=== PATIENT | male | born 1995 | race Caucasian/White ===

== ENCOUNTER → 2016-06-29 | Outpatient (CLI) | payer OTHER ==
--- NOTE | 2016-06-29 15:34 | MR ---
MRI of the Brain (Without Contrast) at 1041 hours Clinical Indications: R 55, syncope and collapse, R 41.0, disorientation Technique: T1-weighted images were acquired axially and sagittally from the foramen magnum to the ve rtex. Axial fast inversion recovery, fast T2-weighted, and diffusion-weighted axial images were obta ined without contrast. Findings: The ventricles, cisterns, and sulci are normal without atrophy, hydrocephalus, midline eloise ft, herniation, or epidural/subdural hematomas. No intracranial hemorrhage or masses. Diffusion-weigh gage sequence demonstrates no acute infarct. Cerebellar tonsils are in normal position. Pituitary glan d is normal in size. Normal signal flow-void in the superior sagittal sinus, basilar artery, and bila teral internal carotid arteries indicating patency. Paranasal sinuses and mastoid air cells are clear . Brainstem and cerebellar hemispheres demonstrate no infarcts or signal abnormalities. Impression: Normal MRI of the brain without contrast.
== END ==
LOC: FIMAGING 10:13
PROVIDERS: ATTEND Psychiatry & Neurology Neurology
DX: R55 Syncope and collapse (principal); R41.0 Disorientation, unspecified

== ENCOUNTER → 2016-07-15 | Outpatient (CLI) | payer OTHER ==
--- NOTE | 2016-07-19 15:07 | CPEEG ---
[f rep st] ELECTROENCEPHALOGRAM DATE OF STUDY: 07/15/2016 DATE OF INTERPRETATION: 07/19/2016 INTERPRETATION: This 4-hour video EEG recording was normal. There were no potentially epileptogenic abnormalities present during the awake or sleep recordings. During the video EEG monitoring session , the patient did not have any clinical events. REPORT: This 4-hour video EEG contains sparse, low amplitude 10 Hz alpha activity to the posterior h ead regions. There was prominent beta frequency activity in the background. There was no abnormal a ctivation at rest, during photic stimulation, or hyperventilation. The patient became drowsy and fel l into sustained sleep during the study. There was no abnormal activation during drowsiness, sleep, or during times of arousal. During the video EEG monitoring session, the patient did not have any cl inical events. /[id number]/MODL
== END ==
LOC: FCPNEURO 09:03
PROVIDERS: ATTEND Psychiatry & Neurology Neurology
DX: R55 Syncope and collapse (principal); R41.0 Disorientation, unspecified

== ENCOUNTER 2017-02-09 13:32 | Inpatient (IN) | payer SELFPAY ==
[2017-02-09] MEDS ORDERED: NALOXONE HCL 0.4 MG/ML INJ ONE (13:44)
[2017-02-09] MEDS ORDERED: NALOXONE HCL 0.4 MG/ML INJ IVP ONE (13:44)
[2017-02-09 13:53] LABS: % IMMATURE GRANULYOCYTES 0.7 % (0.0-1.1); ABSOLUTE IMMATURE GRANULOCYTES 0.13 10^3/uL (0.00-0.10); ADD DIFF? NO; ADD MORPH? NO; ADD SCAN? NO; ATYPICAL LYMPHOCYTE FLAG 0 (0-99); FRAGMENT RBC FLAG 0 (0-99); HEMATOCRIT 43.5 % (40.0-51.0); HEMOGLOBIN 14.7 g/dL (13.7-17.5); LEFT SHIFT FLG 30 (0-99); LIPEMIA HEMOLYSIS FLAG 90 (0-99); MEAN CELL HEMOGLOBIN 30.8 pg (27.9-34.1); MEAN CELL HEMOGLOBIN CONCENTR. 33.8 g/dL (32.4-36.7); MEAN CELL VOLUME 91.2 fL (81.5-99.8); MEAN PLATELET VOLUME 8.9 fL (8.7-11.7); PLATELET CLUMPS FLAG 10 (0-99); PLATELET COUNT 301 10^3/uL (150-400); RED BLOOD CELL COUNT 4.77 10^6/uL (4.40-6.38); RED CELL DISTRIBUTION WIDTH 12.2 % (11.5-15.2)
--- NOTE | 2017-02-09 13:56 | EDPHY ---
H & P Time Seen by Provider: 02/09/17 13:40 HPI/ROS: CHIEF COMPLAINT: Altered mental status HISTORY OF PRESENT ILLNESS: 21-year-old male brought in by EMS after being found in his hotel room altered and unresponsive. There is limited history available. Patient evidently did not check out of the hotel as was scheduled today. The hospital staff went into the room and found him on the bed unresponsive. EMS was called. EMS found him with sonorous respirations, minimally responsible, and a bottle of Ativan, 15 tablets, in the room. Bottle is empty. It was prescribed on December 25. There is a small amount of liquid in the bottle . Patient himself gives no other history. They did find a vap pen. No other history is available. REVIEW OF SYSTEMS: Review of systems is unobtainable from this patient because of altered mentation. PAST MEDICAL HISTORY: Unknown. SOCIAL HISTORY: Unknown. VITAL SIGNS Reviewed by me. GENERAL: Mildly overweight, sonorous respirations, moving all extremities, opens eyes to painful stimuli and sternal rub. At 1 point asks for water. Nasal trumpet is place. HEENT: Atraumatic. Eyes: No icterus, no injection. Pupils are is 5 mm, reactive. Mouth: Slightly dry mucous membranes. No erythema or lesions. Gag reflex is present. Patient is actually biting on the tongue blade. Neck: supple, no signs of meningismus. LUNGS: Coarse breath sounds throughout. CARDIAC: Tachycardic. No rubs murmurs or gallops auscultated. ABDOMEN: Soft, no obvious tenderness. Nondistended. Normal bowel sounds. Excoriations on the lower abdominal wall. BACK: No trauma noted. EXTREMITIES: Erythematous blanching circular patch is present on the left knee and right ankle. No edema. Moving all extremities x4. No trauma. No edema. NEURO: Responsive to painful stimuli. Opens his eyes to voice. Does not follow commands. GCS: Eyes 3, verbal 2, motor 5, Total: 10 SKIN: Slightly diaphoretic. PSYCHIATRIC: Unable to assess. Seems somewhat agitated. - Personal History Tetanus Vaccine Date: 2013 - Medical/Surgical History Hx Asthma: No Hx Chronic Respiratory Disease: No Hx Diabetes: No Hx Cardiac Disease: No Hx Renal Disease: No Hx Cirrhosis: No Hx Alcoholism: No Hx HIV/AIDS: No Hx Splenectomy or Spleen Trauma: No Other PMH: Denies - Social History Smoking Status: Never smoked Constitutional: Initial Vital Signs Heart Rate 103 H 02/09/17 13:46 Respiratory Rate 22 H 02/09/17 13:46 Blood Pressure 174/147 H 02/09/17 13:46 O2 Sat (%) 91 L 02/09/17 13:46 O2 Delivery Mode Nasal Cannula O2 (L/minute) 4 Allergies/Adverse Reactions: No Known Allergies Allergy (Verified 05/10/16 15:40) Home Medications: Medication Instructions Recorded Bupropion HCl [Wellbutrin XL 300mg] 07/24/12 PARoxetine HCL [Paxil 20mg (RX)] 07/24/12 Abilify 12/27/15 LORAZEPAM 12/27/15 Medical Decision Making - Diagnostics EKG Interpretation: 12-LEAD EKG: Please see the full report in [facility]. My interpretation: Tachycardia, borderline prolonged QT. Imaging Results: Imaging Impressions Chest X-Ray 02/09/17 13:49 Impression: 1. Poor inspiration with mild compressive changes. Head CT 02/09/17 13:49 Impression: 1. Limited study with extensive motion artifact. 2. Artifact versus ischemia or edema in the right basal ganglia. 3. No enlarged intracranial hemorrhage or shift. Recommend repeat heating noncontrast CT or acquiring noncontrast MRI. Findings discussed with Emergency Department physician, Morena Arambula MD on , [address]: Impression: 1. Query ischemia involving the internal capsule on the right. 2. No acute intracranial hemorrhage or swelling. Findings discussed with Emergency Department physician, Morena Arambula MD on , 1623 hours. Dictated By: Jose Pang MD ED Course/Re-evaluation: Patient received 0.4 mg of Narcan. He became more agitated following this. Moaning. Not appropriate. I-STAT demonstrates a creatinine of 2.5. Potassium 5.8. Lab potassium [place] 6[place] [address] is negative for any acute bleed. There is an area potential decreased attenuation in the right basal ganglia that may represent hypoxemia. However there is a significant amount of motion artifact. Patient's labs are remarkable for a troponin of 2.6. Rectal aspirin was ordered. When placing the rectal aspirin ,the nursing staff pulled to syringe from his rectum. Urine tox is negative for drugs of abuse. Echocardiogram was ordered. Echocardiogram demonstrates some hypokinesis generally of the right ventricle. No tricuspid regurgitation. Patient's D-dimer was elevated, however, had elevated creatinine precludes obtaining a CT scan with contrast. Repeat CT scan of the head was ordered. Patient's BNP is elevated at 4120. Patient's course was discussed on 2 occasions with the hospitalist service, Dr. Vinny Moran. Patient will be admitted to the ICU. Patient will be followed by Cardiology, Dr. Stephens. Results: Repeat CT scan of the head was obtained prior to admission to the ICU. At this point the patient is not as agitated. I discussed the results of the study with the radiologist. Impression: Area of hypoperfusion the right internal capsule may represent acute ischemia Please see the full radiology report. Updated information was provided to Dr. Nam Torrez. Patient was admitted to the intensive care unit in serious condition. Differential Diagnosis: After the history was obtained and physical exam performed, the following differential for the patient's altered mental status and electrolyte abnormalities was considered included but was not limited to hypoglycemia, rhabdomyolysis, myocardial infarction, arrhythmias, electrolyte disturbances, intracranial hemorrhage, tumor, drug or alcohol intoxication, stroke, cardiac causes, seizure. Critical care time spent by me, Dr. Arambula exclusively with this patient was 50 minutes minutes, exclusive of PA time and exclusive of procedures. The organ system at risk was neurologic and cardiac and I gave IVF, calcium gluconate, dextrose, insulin, Narcan, performed multiple re-evaluations, consulted with cardiology and hospital medicine to prevent worsening of the patients condition. Critical care time included obtaining history, performing a physical exam, bedside monitoring of interventions, collecting and interpreting tests and discussion with consultants but not including time spent performing procedures. Consult/Admit Bed Type: Dr. Vinny Moran, ICU - Data Points Laboratory Results: Laboratory Results 02/09/17 13:06 02/09/17 13:06 02/09/17 02/09/17 02/09/17 14:38 14:38 13:47 WBC RBC Hgb POC Hgb 15.0 gm/dL gm/dL (13.7-17.5) Hct POC Hct 44 % % (40-51) MCV MCH MCHC RDW Plt Count MPV Neut % (Auto) Lymph % (Auto) Simpson % (Auto) Eos % (Auto) Baso % (Auto) Nucleat RBC Rel Count Absolute Neuts (auto) Absolute Lymphs (auto) Absolute Monos (auto) Absolute Eos (auto) Absolute Basos (auto) Absolute Nucleated RBC Immature Gran % Immature Gran # PT INR POC Sodium 141 mEq/L mEq/L (134-144) Sodium POC Potassium 5.9 mEq/L H mEq/L (3.3-5.0) Potassium POC Chloride 105 mEq/L mEq/L (97-110) Chloride Carbon Dioxide Anion Gap POC BUN 39 mg/dL H mg/dL (7-23) BUN Creatinine POC Creatinine 2.5 mg/dL H mg/dL (0.7-1.3) Estimated GFR Glucose POC Glucose 158 mg/dL H mg/dL (70-100) Calcium Creatine Kinase CK-MB (CK-2) Fraction CK-MB (CK-2) % Creatine Kinase Interp Troponin I Urine Opiates Screen Pending NEGATIVE (NEGATIVE) Ur Oxycodone Screen Pending Ur Methadone Pending Urine Barbiturates NEGATIVE (NEGATIVE) Ur Barbituates Screen Pending Ur Phencyclidine Scrn Pending NEGATIVE (NEGATIVE) Ur Amphetamine Screen NEGATIVE (NEGATIVE) Ur Amphetamines Screen Pending U Benzodiazepines Scrn Pending NEGATIVE (NEGATIVE) Urine Cocaine Screen Pending NEGATIVE (NEGATIVE) U Marijuana (THC) Screen NON-NEGATIVE H (NEGATIVE) Ur THC Screen Pending U Rx/OTC Drugs Detect Pending Ur Rx/OTC Suspect Drug Pending Urine Alcohol Pending 02/09/17 02/09/17 02/09/17 13:30 13:06 13:06 WBC RBC Hgb POC Hgb Hct POC Hct MCV MCH MCHC RDW Plt Count MPV Neut % (Auto) Lymph % (Auto) Simpson % (Auto) Eos % (Auto) Baso % (Auto) Nucleat RBC Rel Count Absolute Neuts (auto) Absolute Lymphs (auto) Absolute Monos (auto) Absolute Eos (auto) Absolute Basos (auto) Absolute Nucleated RBC Immature Gran % Immature Gran # PT 15.4 SEC H SEC (12.0-15.0) INR 1.22 H (0.83-1.16) POC Sodium Sodium 139 mEq/L mEq/L (134-144) POC Potassium Potassium 6.4 mEq/L H* mEq/L (3.5-5.2) POC Chloride Chloride 106 mEq/L mEq/L (97-110) Carbon Dioxide 14 mEq/l L mEq/l (22-31) Anion Gap 19 mEq/L H mEq/L (8-16) POC BUN BUN 34 mg/dL H mg/dL (7-23) Creatinine 2.6 mg/dL H mg/dL (0.7-1.3) POC Creatinine Estimated GFR 31 Glucose 159 mg/dL H mg/dL (70-100) POC Glucose Calcium 8.5 mg/dL mg/dL (8.5-10.4) Creatine Kinase 91632 IU/L H IU/L (0-224) CK-MB (CK-2) Fraction 62.70 ng/mL H ng/mL (0.00-3.19) CK-MB (CK-2) % 0.4 % % (0.0-4.0) Creatine Kinase Interp NEGATIVE (NEGATIVE) Troponin I 2.360 ng/mL H ng/mL (0.000-0.034) Urine Opiates Screen Ur Oxycodone Screen Ur Methadone Urine Barbiturates Ur Barbituates Screen Ur Phencyclidine Scrn Ur Amphetamine Screen Ur Amphetamines Screen U Benzodiazepines Scrn Urine Cocaine Screen U Marijuana (THC) Screen Ur THC Screen U Rx/OTC Drugs Detect Ur Rx/OTC Suspect Drug Urine Alcohol 02/09/17 13:06 WBC 18.63 10^3/uL H 10^3/uL (3.80-9.50) RBC 4.77 10^6/uL 10^6/uL (4.40-6.38) Hgb 14.7 g/dL g/dL (13.7-17.5) POC Hgb Hct 43.5 % % (40.0-51.0) POC Hct MCV 91.2 fL fL (81.5-99.8) MCH 30.8 pg pg (27.9-34.1) MCHC 33.8 g/dL g/dL (32.4-36.7) RDW 12.2 % % (11.5-15.2) Plt Count 301 10^3/uL 10^3/uL (150-400) MPV 8.9 fL fL (8.7-11.7) Neut % (Auto) 83.5 % H % (39.3-74.2) Lymph % (Auto) 10.8 % L % (15.0-45.0) Simpson % (Auto) 4.8 % % (4.5-13.0) Eos % (Auto) 0.0 % L % (0.6-7.6) Baso % (Auto) 0.2 % L % (0.3-1.7) Nucleat RBC Rel Count 0.0 % % (0.0-0.2) Absolute Neuts (auto) 15.56 10^3/uL H 10^3/uL (1.70-6.50) Absolute Lymphs (auto) 2.02 10^3/uL 10^3/uL (1.00-3.00) Absolute Monos (auto) 0.89 10^3/uL H 10^3/uL (0.30-0.80) Absolute Eos (auto) 0.00 10^3/uL L 10^3/uL (0.03-0.40) Absolute Basos (auto) 0.03 10^3/uL 10^3/uL (0.02-0.10) Absolute Nucleated RBC 0.00 10^3/uL 10^3/uL (0-0.01) Immature Gran % 0.7 % % (0.0-1.1) Immature Gran # 0.13 10^3/uL H 10^3/uL (0.00-0.10) PT INR POC Sodium Sodium POC Potassium Potassium POC Chloride Chloride Carbon Dioxide Anion Gap POC BUN BUN Creatinine POC Creatinine Estimated GFR Glucose POC Glucose Calcium Creatine Kinase CK-MB (CK-2) Fraction CK-MB (CK-2) % Creatine Kinase Interp Troponin I Urine Opiates Screen Ur Oxycodone Screen Ur Methadone Urine Barbiturates Ur Barbituates Screen Ur Phencyclidine Scrn Ur Amphetamine Screen Ur Amphetamines Screen U Benzodiazepines Scrn Urine Cocaine Screen U Marijuana (THC) Screen Ur THC Screen U Rx/OTC Drugs Detect Ur Rx/OTC Suspect Drug Urine Alcohol Medications Given: Sodium Chloride (Ns) 1,000 mls @ 100 mls/hr IV CONT YVETTE Stop: 08/08/17 16:14 Last Admin: 02/09/17 18:37 Dose: 1,000 mls Ertapenem 0.5 gm/ Sodium (Chloride) 50 mls @ 100 mls/hr IV DAILY YVETTE PRN Reason: Protocol Stop: 03/11/17 17:29 Last Admin: 02/09/17 18:37 Dose: 50 mls Discontinued Medications Aspirin (Aspirin Rectal) 300 mg TN EDNOW ONE Stop: 02/09/17 15:09 Last Admin: 02/09/17 15:11 Dose: 300 mg Calcium Gluconate (Calcium Gluconate) 1 gm IVP EDNOW ONE Stop: 02/09/17 14:15 Last Admin: 02/09/17 14:39 Dose: 1 gm Dextrose (Dextrose 50% Syringe) 25 gm IVP EDNOW ONE Stop: 02/09/17 14:15 Last Admin: 02/09/17 14:40 Dose: 25 gm Sodium Chloride (Ns) 2,000 mls @ 0 mls/hr IV EDNOW ONE; Wide Open PRN Reason: Protocol Stop: 02/09/17 14:01 Last Admin: 02/09/17 14:53 Dose: 2,000 mls Insulin Human Regular (Humulin R) 10 unit IVP EDNOW ONE Stop: 02/09/17 14:15 Last Admin: 02/09/17 14:41 Dose: 10 units Lorazepam (Ativan Injection) 2 mg IVP EDNOW ONE Stop: 02/09/17 14:31 Last Admin: 02/09/17 14:50 Dose: 2 mg Naloxone HCl (Narcan) 0.4 mg IVP EDNOW ONE Stop: 02/09/17 13:45 Last Admin: 02/09/17 13:46 Dose: 0.4 mg Sodium Bicarbonate (Sodium Bicarbonate) 50 meq IVP EDNOW ONE Stop: 02/09/17 14:37 Last Admin: 02/09/17 14:41 Dose: 50 meq Point of Care Test Results: 02/09/17 13:47 POC Sodium 141 POC Potassium 5.9 H POC Chloride 105 POC BUN 39 H POC Creatinine 2.5 H POC Glucose 158 H Departure - Departure Disposition: [facility] Acute Clinical Impression: Hyperkalemia, Elevated troponin Altered mental status Qualifiers: Altered mental status type: somnolence Qualified Code(s): R40.0 - Somnolence Acute renal failure Qualifiers: Acute renal failure type: unspecified Qualified Code(s): N17.9 - Acute kidney failure, unspecified Congestive heart failure Qualifiers: Congestive heart failure type: unspecified congestive heart failure type Congestive heart failure chronicity: acute Qualified Code(s): I50.9 - Heart failure, unspecified Rhabdomyolysis Qualifiers: Rhabdomyolysis type: traumatic Encounter type: initial encounter Qualified Code (s): T79.6XXA - Traumatic ischemia of muscle, initial encounter Condition: Serious
[2017-02-09] MEDS ORDERED: NS 2,000 ML IV ONE (14:00)
[2017-02-09 14:05] LABS: ANION GAP 19 mEq/L (8-16); CALCIUM 8.5 mg/dL (8.5-10.4); CARBON DIOXIDE 14 mEq/l (22-31); CHLORIDE 106 mEq/L (97-110); CREATININE 2.6 mg/dL (0.7-1.3); GLOMERULAR FILTRATION RATE 31; GLUCOSE 159 mg/dL (70-100); SODIUM 139 mEq/L (134-144)
[2017-02-09 14:06] LABS: INR 1.22 (0.83-1.16); PROTIME(PATIENT) 15.4 SEC (12.0-15.0)
[2017-02-09 14:08] LABS: POTASSIUM 6.4 mEq/L (3.5-5.2)
[2017-02-09] MEDS ORDERED: SODIUM BICARBONATE 150 MEQ in D5W 1,000 ML IV ONE (14:14)
[2017-02-09] MEDS ORDERED: CALCIUM GLUC 10% 1 GM/10 ML VIAL IVP ONE (14:14)
[2017-02-09] MEDS ORDERED: D50W 25 GM/50 ML SYR IVP ONE ×2 (14:14→16:32)
[2017-02-09] MEDS ORDERED: INSULIN REGULAR HUMAN 100 UNIT/ML IVP ONE (14:14)
[2017-02-09] MEDS ORDERED: LORazepam 2 MG/ML INJ ONE (14:15)
[2017-02-09] MEDS ORDERED: LORazepam 2 MG/ML INJ IVP ONE (14:30)
--- NOTE | 2017-02-09 14:30 | CPEKG ---
Heart Rate: 104 RR Interval: 577 P-R Interval: 144 QRSD Interval: 88 QT Interval: 364 QTC Interval: 479 P [place]: 32 QRS [place]: 11 T Wave [place]: 18 EKG Severity - BORDERLINE ECG - EKG Impression: SINUS TACHYCARDIA EKG Impression: BORDERLINE PROLONGED QT INTERVAL Electronically Signed By: Morena Arambula 09-Feb-2017 21:28:17
[2017-02-09] MEDS ORDERED: SODIUM BICARBONATE 50 MEQ/50 ML SYR IVP ONE (14:36)
[2017-02-09] MEDS ORDERED: ASPIRIN RECTAL 300 MG SUPP PR ONE ×2 (14:59→15:08)
[2017-02-09 15:19] LABS: CK-MB INTERPRETATION NEGATIVE (NEGATIVE)
[2017-02-09] MEDS ORDERED: ONDANSETRON 4 MG/2 ML VIAL IVP PRN (16:05)
[2017-02-09] MEDS ORDERED: PROMETHAZINE HCL 25 MG/ML INJ IVP PRN (16:05)
[2017-02-09 16:11] LABS: ALANINE AMINOTRANSFERASE 802 IU/L (21-72); ALBUMIN 3.5 g/dL (3.5-5.0); ALKALINE PHOSPHATASE 47 IU/L (38-126); ANION GAP 12 mEq/L (8-16); BILIRUBIN,TOTAL 0.5 mg/dL (0.1-1.4); CALCIUM 8.4 mg/dL (8.5-10.4); CARBON DIOXIDE 22 mEq/l (22-31); CHLORIDE 105 mEq/L (97-110); CREATININE 2.2 mg/dL (0.7-1.3); ETHANOL SERUM < 10 mg/dL (0-10); GLOMERULAR FILTRATION RATE 38; GLUCOSE 115 mg/dL (70-100); POTASSIUM 5.3 mEq/L (3.5-5.2); SALICYLATE < 1.0 mg/dL (2.0-20.0); SODIUM 139 mEq/L (134-144); TOTAL PROTEIN 6.1 g/dL (6.3-8.2)
--- NOTE | 2017-02-09 16:16 | PDGENHP ---
History and Physical - Chief Complaint Acute encephalopathy - History of Present Illness primary care provider: Unknown History of present illness: 21-year-old male presents with acute encephalopathy characterized as unresponsiveness with sonorous respirations, onset of symptoms unclear. The patient was staying at the [facility] and hotel management came to discharge him from his room, finding him unarousable on the bed. EMS was contacted, and upon arrival to the scene, they found an empty prescription bottle for Ativan near the bed. The bottle contained on identifiable liquid. The patient was unable to be aroused, was placed on supplemental oxygen, was transported to [facility]. Upon arrival to [facility], the patient appeared tachypneic and was placed on face mask oxygen. Received Narcan and became somewhat agitated. He was given 1 dose of IV Ativan and remained calm, allowing head CT and further workup to commence. Other information about this patient is unknown. History Information - Allergies/Home Medication List Allergies/Adverse Reactions: No Known Allergies Allergy (Verified 05/10/16 15:40) Home Medications: Bupropion HCl [Wellbutrin XL 300mg] 07/24/12 [Last Taken 07/24/12 07:00] PARoxetine HCL [Paxil 20mg (RX)] 07/24/12 [Last Taken 07/24/12 07:00] Abilify 12/27/15 [Last Taken Unknown] LORAZEPAM 12/27/15 [Last Taken Unknown] I have personally reviewed and updated: family history, medical history, social history, surgical history - Past Medical History Additional medical history: Closed head injury April of 2016 - Surgical History Additional surgical history: unobtainable - Family History Additional family history: unobtainable - Social History Smoking Status: Never smoked Alcohol Use: Other (unobtainable) Drug Use: Other ( unobtainable) Additional social history: unobtainable Review of Systems ROS: 10pt was reviewed & negative except for what was stated in HPI & below ( and is otherwise unobtainable from the patient) Physical Exam Temp Pulse Resp BP Pulse Ox 37.9 C 99 20 165/115 H 98 02/09/17 16:04 02/09/17 16:04 02/09/17 16:04 02/09/17 16:04 02/09/17 16:04 O2 (L/minute) 12 Constitutional: no apparent distress, not in pain, obese, unkempt, No uncomfortable Eyes: other ( roving eye eyes, reactive pupils, conjugate gaze) Ears, Nose, Mouth, Throat: other ( patient's mouth is closed) Cardiovascular: tachycardia, No systolic murmur, No irregularly irregular, No edema Respiratory: reduced air movement ( right lateral anterior segment), other ( inspiratory wheezes centrally), No expiratory wheeze, No inspiratory crackles, No bronchial breath sounds Gastrointestinal: no palpable masses, No normoactive bowel sounds ( hypoactive bowel sounds), No tenderness, No guarding, No rebound Genitourinary: no bladder fullness, no bladder tenderness, other ( normal appearing penis, syringe placed in rectum) Skin: other ( blanchable patch very minimally raised approximately 15 cm in diameter along the central abdomen with some excoriation, bilateral excoriations on the thighs laterally, acne on the face, inguinal erythema left side, mildly raised, clearly demarcated patch, blanchable on the left knee and lateral leg approximately 15 cm in diameter, inverted nipples) Musculoskeletal: other ( no rigidity, normal bulk and tone) Neurologic: other ( alert awake oriented times 0, patient is noncooperative, does not follow commands, seems to have palmar squeezing reflex on right, unclear if he has on left, somewhat hyper reflexive a in the bilateral patellae with response to tactile stimuli) Psychiatric: other ( unable to perform this time) Lab Data & Imaging Review 02/09/17 13:06 02/09/17 15:27 WBC 18.63 10^3/uL (3.80-9.50) H 02/09/17 13:06 RBC 4.77 10^6/uL (4.40-6.38) 02/09/17 13:06 Hgb 14.7 g/dL (13.7-17.5) 02/09/17 13:06 POC Hgb 15.0 gm/dL (13.7-17.5) 02/09/17 13:47 Hct 43.5 % (40.0-51.0) 02/09/17 13:06 POC Hct 44 % (40-51) 02/09/17 13:47 MCV 91.2 fL (81.5-99.8) 02/09/17 13:06 MCH 30.8 pg (27.9-34.1) 02/09/17 13:06 MCHC 33.8 g/dL (32.4-36.7) 02/09/17 13:06 RDW 12.2 % (11.5-15.2) 02/09/17 13:06 Plt Count 301 10^3/uL (150-400) 02/09/17 13:06 MPV 8.9 fL (8.7-11.7) 02/09/17 13:06 Neut % (Auto) 83.5 % (39.3-74.2) H 02/09/17 13:06 Lymph % (Auto) 10.8 % (15.0-45.0) L 02/09/17 13:06 Evangeline % (Auto) 4.8 % (4.5-13.0) 02/09/17 13:06 Eos % (Auto) 0.0 % (0.6-7.6) L 02/09/17 13:06 Baso % (Auto) 0.2 % (0.3-1.7) L 02/09/17 13:06 Nucleat RBC Rel Count 0.0 % (0.0-0.2) 02/09/17 13:06 Absolute Neuts (auto) 15.56 10^3/uL (1.70-6.50) H 02/09/17 13:06 Absolute Lymphs (auto) 2.02 10^3/uL (1.00-3.00) 02/09/17 13:06 Absolute Monos (auto) 0.89 10^3/uL (0.30-0.80) H 02/09/17 13:06 Absolute Eos (auto) 0.00 10^3/uL (0.03-0.40) L 02/09/17 13:06 Absolute Basos (auto) 0.03 10^3/uL (0.02-0.10) 02/09/17 13:06 Absolute Nucleated RBC 0.00 10^3/uL (0-0.01) 02/09/17 13:06 Immature Gran % 0.7 % (0.0-1.1) 02/09/17 13:06 Immature Gran # 0.13 10^3/uL (0.00-0.10) H 02/09/17 13:06 PT 15.4 SEC (12.0-15.0) H 02/09/17 13:06 INR 1.22 (0.83-1.16) H 02/09/17 13:06 D-Dimer 1.10 ug/mLFEU (0.00-0.50) H 02/09/17 15:33 POC Sodium 141 mEq/L (134-144) 02/09/17 13:47 Sodium 139 mEq/L (134-144) 02/09/17 13:06 POC Potassium 5.9 mEq/L (3.3-5.0) H 02/09/17 13:47 Potassium 6.4 mEq/L (3.5-5.2) H* 02/09/17 13:06 POC Chloride 105 mEq/L (97-110) 02/09/17 13:47 Chloride 106 mEq/L (97-110) 02/09/17 13:06 Carbon Dioxide 14 mEq/l (22-31) L 02/09/17 13:06 Anion Gap 19 mEq/L (8-16) H 02/09/17 13:06 POC BUN 39 mg/dL (7-23) H 02/09/17 13:47 BUN 34 mg/dL (7-23) H 02/09/17 13:06 Creatinine 2.6 mg/dL (0.7-1.3) H 02/09/17 13:06 POC Creatinine 2.5 mg/dL (0.7-1.3) H 02/09/17 13:47 Estimated GFR 31 02/09/17 13:06 Glucose 159 mg/dL (70-100) H 02/09/17 13:06 POC Glucose 158 mg/dL (70-100) H 02/09/17 13:47 Calcium 8.5 mg/dL (8.5-10.4) 02/09/17 13:06 Creatine Kinase 10727 IU/L (0-224) H 02/09/17 13:30 CK-MB (CK-2) Fraction 62.70 ng/mL (0.00-3.19) H 02/09/17 13:30 CK-MB (CK-2) % 0.4 % (0.0-4.0) 02/09/17 13:30 Creatine Kinase Interp NEGATIVE (NEGATIVE) 02/09/17 13:30 Troponin I 2.360 ng/mL (0.000-0.034) H 02/09/17 13:06 NT-Pro-B Natriuret Pep 4120 pg/mL (0-125) H 02/09/17 Unknown Urine Opiates Screen NEGATIVE (NEGATIVE) 02/09/17 14:38 Urine Barbiturates NEGATIVE (NEGATIVE) 02/09/17 14:38 Ur Phencyclidine Scrn NEGATIVE (NEGATIVE) 02/09/17 14:38 Ur Amphetamine Screen NEGATIVE (NEGATIVE) 02/09/17 14:38 U Benzodiazepines Scrn NEGATIVE (NEGATIVE) 02/09/17 14:38 Urine Cocaine Screen NEGATIVE (NEGATIVE) 02/09/17 14:38 U Marijuana (THC) Screen NON-NEGATIVE (NEGATIVE) H 02/09/17 14:38 Visualized and Interpreted Chest x-ray results: Yes Chest X-Ray results: other ( faint patchy airspace disease without focal consolidation) Visualized and Interpreted EKG results: Yes EKG Interpretation: Positive for: other ( sinus tachycardia with T-wave inversion in lead 3) Assessment & Plan Assessment: 21-year-old male presents with acute encephalopathy in the setting of suspected toxin ingestion Plan: 1. Acute encephalopathy. New problem this provider, further workup indicated. Evidenced by global brain dysfunction characterized as unresponsiveness, somnolence, inability to follow commands, all of which is presumably acute change from his baseline, as the patient was able to function and check into the days in prior to this presentation. I suspect the cause is toxic ingestion of an unknown substance. His encephalopathy has most likely led to a prolonged down time, resulting in poor oral intake, acute kidney injury, rhabdomyolysis. The patient is at high risk for aspiration pneumonia and may have experienced anoxic injury to his brain. - reviewed outside records demonstrates previous closed head injury in April 2016, subsequent MRI in June 2016 demonstrating no abnormalities, subsequent EEG in July of 2016 demonstrating no abnormalities - head CT demonstrating possible right basal ischemia versus edema, now the patient is less physically active, get repeat head CT to further define, plan to perform MRI tomorrow if patient's mental status does not begin improving - discussed with lab, we will send the Ativan bottle containing the liquid which was presumably injected into the rectum to [facility] laboratories for complete ID of unknown substance - send complete tox panel - get ABG, lactic acid, procalcitonin, blood cultures, repeat chemistry, DIC panel - patient with minimal response to Narcan, hold on further doses at this time, patient currently stable from a respiratory standpoint, continue to monitor central oxygen with non-rebreather mask 2. Non ST-elevation myocardial infarction. Evidenced by troponin of 2.3, no active ischemic changes on EKG, repeat troponin at 10:00 p.m. and tomorrow a.m. - echocardiogram performed, we will review to rule out focal wall ischemia - if patient becomes hypotensive, repeat EKG and troponin immediately 3. Systemic inflammatory response syndrome. Evidenced by tachycardia, tachypnea , leukocytosis, unclear source of infection. Most likely secondary to the above processes, but he is at high risk for aspiration pneumonia - get noncontrast chest CT given his potentially patchy infiltrates on chest x- ray - send blood cultures - continue IV fluids - hold on IV antibiotics at this time - send procalcitonin level 4. Metabolic acidosis. Acute, most likely secondary to his toxic ingestion, has an anion gap of 19, send volatile alcohols - continue IV fluids 5. Acute kidney injury. Most likely secondary to prolonged down time, creatinine level improving with IV fluids - if serum creatinine level does not continue to improve, will send urinalysis and fractional excretion of sodium to consider acute tubular necrosis 6. Hyperkalemia. Secondary to acute kidney injury and reduced excretion, continue IV fluids, continue to monitor closely 7. Rhabdomyolysis. Acute, evidenced by CPK 14,000, will give IV fluids and monitor CPK level Diet. NPO Prophylaxis. High risk patient, has bleeding risk given possible brain ischemia , placed on SCDs Code. Full at present Disposition. Anticipated discharge uncertain this time, patient remains critically ill with high risk of worsening morbidity and/or mortality. 60 minutes of critical care time spent at bedside with patient, addressing the issues above, patient remains critically ill.
[2017-02-09 16:21] LABS: BASE EXCESS -4.9 mEq/L (-2.5-2.5); BICARBONATE 19 mEq/L (22-26); MEASURED OXYGEN SATURATION 92 % (92-95); PCO2 33 mmHg (34-38); PO2 69 mmHg (65-75); TCO2 20 mEq/L (23-27)
[2017-02-09 16:24] LABS: ASPARTATE AMINOTRANSFERASE 1479 IU/L (17-59)
[2017-02-09] MEDS ORDERED: CALCIUM CHLORIDE 1 GM/10 ML INJ ONE (16:32)
[2017-02-09] MEDS ORDERED: SODIUM BICARBONATE 50 MEQ/50 ML SYR ONE (16:32)
--- NOTE | 2017-02-09 16:32 | ASMTCMCOM ---
CM Note CM Note Notes: Patient does NOT given permission to contact his mother Evelyn Sexton (H: [phone]; Cell: ) at this time. Date Signed: 02/09/2017 04:31 PM Electronically Signed By:Chata Shipley
[2017-02-09 16:35] LABS: PLATELET COUNT 301 10^3/uL (150-400)
--- NOTE | 2017-02-09 16:40 | ECHO ---
[id number] + + [address] : : [place] [address] : : [phone] + Adult Echocardiographic Report + -----+ :Name: ISAAC MALIK LStudy Date: 02/09/2017 03:19 PM : : Hospital Admission Number: [id number] Nerissa n: ER: :: 1995 Gender: Male : :Age: 21 yrs Race: WH : :Reason For Study: elev troponin : :History: elev troponin : + -----+ MMode/2D Measurements \T\ Calculations IVSd: 0.80 cm RVDd: 4.0 cm FS: 15.2 % Ao root diam: LVPWd: 0.84 cm LVIDd: 4.5 cm EDV(Teich): 3.2 cm LVIDs: 3.8 cm 93.9 ml ESV(Teich): 63.5 ml EF(Teich): 32.4 % LVLd ap4: 9.5 cm SV(MOD-sp4): EDV(MOD-sp4): 56.0 ml 127.0 ml LVLs ap4: 8.8 cm ESV(MOD-sp4): 71.0 ml EF(MOD-sp4): 44.1 % Normal Measurement Values: + + :LVIDd (3.5-5.7cm) IVSd (0.6-1.1cm) LVPWd (0.6-1.1cm) Aortic Root (2.0-3.7cm)Left Atrium (1.5-4.0cm): :LV Vol(d) (76-115ml) LV Vol(s) (29-48ml) Ejec Fraction (50-65%)PV Cam (0.6- 1.2m/s) TV Cam (0.4-1.0m/s) : :MV E Cam (0.8-1.0m/s)MV A Cam (0.3-1.0m/s)LVOT Cam (0.7-1.2m/s) Asc Ao Cam ( 0.9-1.8m/s) : + + Doppler Measurements \T\ Calculations MV E max cam: Ao V2 max: LV V1 max: PA V2 max: 58.2 cm/sec 93.7 cm/sec 85.9 cm/sec 85.5 cm/sec MV A max cam: Ao max PG: LV V1 max PG: PA max P.1 cm/sec 3.5 mmHg 3.0 mmHg 2.9 mmHg MV E/A: 0.84 TR max cam: 212.0 cm/sec TR max P.0 mmHg RAP systole: 5.0 mmHg RVSP(TR): 23.0 mmHg Left Ventricle The left ventricle is normal in size. There is normal left ventricular wall thickness. Left ventricular systolic function is mildly reduced. Ejection Fraction = 40-45%. The left ventricular ejection fraction is calculated at 32.4 %. There is Doppler evidence for diastolic dysfunction. There is apical hypokinesis. Right Ventricle The right ventricle is mildly dilated. The right ventricular systolic function is mildly reduced. Atria The left atrial size is normal. Right atrial size is normal. Mitral Valve The mitral valve is normal in structure and function. There is trace to mild mitral regurgitation. Tricuspid Valve The tricuspid valve is normal in structure and function. There is trace to mild tricuspid regurgitation. Right ventricular systolic pressure is 23mmHg. Aortic Valve The aortic valve is trileaflet. There is no aortic stenosis. There is no aortic insufficiency. Pulmonic Valve The pulmonic valve is not well visualized. Great Vessels The aortic root is normal size. Pericardium/Pleural There is no pericardial effusion. Conclusion A two-dimensional transthoracic echocardiogram with M-mode and Doppler was performed. (1) Left ventricular systolic ejection fraction was mild to moderately reduced (35-45%) - mild to moderate global hypokinesis with more prounounced hypokinesis to the apex (2) No left ventricular hypertrophy (3) Diastolic dysfunction was present (4) Mild dilation of the right ventricular chamber with mild reduction in RV function (5) Normal atrial dimensions (6) Trace/mild mitral regurgitation (7) Trileaflet aortic valve without appreciable insufficiency noted (8) Trace/mild tricuspid regurgitation - RVSP was normal (9) Poor visualization of the pulmonic valve (10) No comparison echocardiograms Final Reading Physician: Iva Cuevas signed on 02/09/2017 04:39 PM Ordering Physician: Morena Arambula Performed By: Lexy Burgos
[2017-02-09 16:46] LABS: INR 1.29 (0.83-1.16); PROTIME(PATIENT) 16.1 SEC (12.0-15.0)
[2017-02-09 16:47] LABS: APTT 34.1 SEC (23.0-38.0)
[2017-02-09] MEDS ORDERED: HALOPERIDOL LACT 5 MG/ML INJ IVP PRN (17:12)
[2017-02-09 17:26] LABS: FIBRINOGEN 335 mg/dL (214-456)
[2017-02-09 18:14] LABS: COLOR YELLOW; LEUKOCYTE ESTERASE,URINE NEGATIVE (NEGATIVE); NITRITE,URINE NEGATIVE (NEGATIVE)
[2017-02-09 18:19] LABS: MUCUS TRACE /lpf (NONE-1+)
[2017-02-09] MEDS: NS 1,000 ML IV SCH (18:37)
[2017-02-09] MEDS: ERTAPENEM 0.5 GM in NS 50 ML IV SCH (18:37)
--- NOTE | 2017-02-09 18:50 | WOCRNPDOC ---
WOCRN Advanced Assessment Note - Skin Integrity Problem, Advanced Assess Right Posterior Ankle Dressing Type: Open to Air Radha Wound Tissue: Blanching, Erythema Site Measurement - Head-to-Toe Length X Width X Depth (cm): 6.5x4x0 Skin Integrity Problem Comment: Clearly demarkated area of blanching erythema that is slightly raised. Unknown etiology. Ok to gently apply skin repair cream and watch/wait to see if area resolves or if it evolves and blisters/opens. Wound care will check in again tomorrow. Left Lateral Knee Dressing Type: Open to Air Radha Wound Tissue: Blanching, Erythema Site Measurement - Head-to-Toe Length X Width X Depth (cm): 7.5x7.5x0 Skin Integrity Problem Comment: Clearly demarkated area of blanching erythema that is slightly raised. Unknown etiology but appears to have same etiology of wound on right posterior ankle. Ok to gently apply skin repair cream and watch/ wait to see if area resolves or if it evolves and blisters/opens. Wound care will check in again tomorrow. Right Lateral Thigh Dressing Type: Open to Air Radha Wound Tissue: Blanching, Erythema Wound Bed Constitution: Scab (approx x25 small scabs) Site Measurement - Head-to-Toe Length X Width X Depth (cm): all scabs are small ranging from approx 0.1x0.1x0 to 0.2x0.2x0 Skin Integrity Problem Comment: Likely from scratching/picking area. This area mimicks abdominal area of denudement. Lower Medial Abdomen Dressing Type: Open to Air Radha Wound Tissue: Blanching, Erythema Wound Bed Constitution: Scab (approx x 30) Site Measurement - Head-to-Toe Length X Width X Depth (cm): 0.1x0.1xscab to 0.2x0.2xscab Skin Integrity Problem Comment: Mostly scattered scabs from picking/scratching. One larger area of dendement in the center is partial thickness and dried measuring approx 1x1.5x0.1. No sign of infection. May benefit from being covered by allevyn life dressing. Sofia GERBER in room for all care and assessment. Unable to discuss plan nor glean any information regarding wounds from patient at this time. He is minimally rousable and cannot answer questions.
--- NOTE | 2017-02-09 21:03 | GCON ---
[f rep st] CONSULTATION CARDIOLOGY CONSULTATION DATE OF CONSULTATION: 02/09/2017 CHIEF COMPLAINT: Found unresponsive. HISTORY OF PRESENT ILLNESS: The patient is a 21-year-old male, who [facility], it i s not known on what day, and was scheduled to check out of the hotel today. Had a do not disturb si gn on the outer portion of the [facility] room where he was staying. Management went to check on him and found him unresponsive. EMS was called, and the patient was taken to the hospital emergently fo r further evaluation. The patient was noted to have a bottle of Ativan near his bedside within an u nknown fluid in it, presumably to dilute that and has ultimately been found to have a syringe appare ntly in his rectum for injecting some substance there. The patient was unresponsive, given Narcan w ithout affect, other than becoming somewhat agitated. He was given Ativan in the emergency departme nt. Subsequently had been evaluated with a chest x-ray, chest CT, head CT, echocardiogram, which wa s also repeated and compared to an old MRI, abdominal x-ray, echocardiogram and laboratory studies. I was asked to see the patient because of abnormalities identified on the echocardiogram as well as an elevated troponin level which was measured at 2.2, elevated creatine kinase of 14,000 with a neg ative MB interpretation. His N-terminal proBNP level was also 4120, and we were asked to see the nilda conteh in consultation. At the time of my evaluation, the patient is unable to participate in his hi story and physical. I asked him if it would be okay if I called his mother. He was unable to respo nd to that question, either in the affirmative or the negative. Because the patient is gravely ill and his mother was a proxy, I did attempt to contact his mother because he was unable to specificall y tell me that he did not want me to call his mother and her being the proxy, I felt it was importan t that she be aware of where the patient is located but also and more importantly, for us to be of o btain more of his medical history than we are currently able at the present time. ALLERGIES: The patient is not known to be allergic to medications from prior admission to the [facility]. CURRENT MEDICATIONS: Include bupropion XL 300 mg, Paxil 20 mg, Abilify date of last being taken is unknown and lorazepam 12/2015 was the last date that was known to be taken. PAST MEDICAL HISTORY: Significant for a closed head injury in April of 2016. We are unable to o btain additional surgical history. FAMILY HISTORY: Unobtainable at present. SOCIAL HISTORY: Pertinent for never having smoked. We are unable to obtain his current alcohol or drug use history. His current social situation is also unknown. REVIEW OF SYSTEMS: The review of systems is unobtainable from the patient given his poorly responsi ve state. PHYSICAL EXAMINATION: GENERAL: He is poorly responsive. He is not currently oriented to person, p lace, or time. VITAL SIGNS: His blood pressure is elevated at 165/115, heart rate 99, his respirat ory rate is 20 with shallow respirations. He does seem to be able to currently protect his airway. His saturation is 92% and he is in a normal sinus rhythm with near tachycardia. His temperature is 37.9, via a urinary catheter. NECK: Reveals no JVD or carotid bruit. I do not appreciate a supra clavicular or posterior chain lymph node enlargement. HEART: Reveals a normal S1 and S2 without S3 , S4. He does not have a rub on exam. His heart sounds are somewhat distant, presumably secondary to his body habitus. LUNGS: Clear to auscultation anteriorly with decreased breath sounds posterio rly as he is breathing with shallow respirations. I do not appreciate a wheeze, rale or rhonchi. A BDOMEN: Obese with positive bowel sounds. It is nondistended and nontender. There is no rebound o r guarding. EXTREMITIES: Cool but dry. He has intact radial dorsalis pedis, and posterior tibial pulses. He does not have peripheral edema. NEUROLOGIC: He is able to withdraw to painful stimuli. His right pupil is approximately 4 mm in size and responsive, and the left pupil is 3 and responsi ve. He is uncooperative and does not follow commands. Seems to have Gupta squeezing reflex on the right, unclear on the left. PSYCHIATRIC: Is unable to be performed at this time. LABORATORY STUDIES: Reveal a white count of 18.63, potassium 5.3, BUN and creatinine of 32 and 2.2 with a glucose of 115. Creatinine kinase is 14,154 with an MB fraction of 62.7 with a negative MB i ndex. CPK-MB index is 0.4. His troponin I is 2.36 and N-terminal proBNP is 4120. His opiates, bar biturates, PCP, amphetamine, benzodiazepines, cocaine screen are all negative. His marijuana screen is non negative. His chest x-ray reveals patchy airspace disease without focal consolidation. His EKG reveals normal sinus tachycardia with T-wave inversion in limb lead III, which may be a normal variant for patients with a QRS axis between 0 and 90. There were no significant ST-segment depress ions or elevations noted. The QT interval when corrected for rate is prolonged at 479. The heart r ate was 104 on this examination. There is a micro S in lead I, no Q-wave in lead III, along with a T-wave inversion in lead III. This would best be described as an RSR prime pattern which is most li caity a function of the patient's QRS axis as opposed to signs of ischemia or right ventricular strai n. The CT scan of the head on repeat showed a low attenuation, round lesion involving the genu of the i nternal capsule on the right without acute intracranial hemorrhage or swelling. IMPRESSION/PLAN: This patient was found under suspicious circumstances in a local hotel room at a [facility]. He had checked in and may have each had a purposeful overdose on an unknown substance, alt crystal his urine tox screen is currently negative for benzodiazepines, and the only positive thing is a non negative evaluation for marijuana indicating that he may have used THC at some point within t he last several days. However, the patient is poorly responsive and is unable to indicate to me whe ther or not he would like his family members to be notified. Because his mother would be his closes t relative and therefore is his proxy, and because of the serious nature of his condition, I have ma de the decision to call his mother to let her know where he is, as well as in an attempt to obtain a dditional medical information about his recent clinical history etc. The patient does on the echoca rdiogram have fairly global hypokinesis with a predominance of apical hypokinesis which would be mos t consistent with a stress related cardiomyopathy. Especially given the low level troponin and lack of ischemic or injury changes on the EKG, I believe this is likely a transient injury. The elevate d BNP is also inconsistent with an acute myocardial strain, possibly related to a threatened or abor gage respiratory arrest with associated cardiovascular compromise. I doubt that the patient had ante cedent serious cardiovascular illness given his young age. Thank you for the consultation. We will follow with you. I do not think that invasive cardiac test ing is warranted at the present time. /[id number]
[2017-02-10 04:16] LABS: % IMMATURE GRANULYOCYTES 0.6 % (0.0-1.1); ABSOLUTE IMMATURE GRANULOCYTES 0.09 10^3/uL (0.00-0.10); ADD DIFF? NO; ADD MORPH? NO; ADD SCAN? NO; ATYPICAL LYMPHOCYTE FLAG 0 (0-99); FRAGMENT RBC FLAG 0 (0-99); HEMOGLOBIN 13.2 g/dL (13.7-17.5); LEFT SHIFT FLG 10 (0-99); LIPEMIA HEMOLYSIS FLAG 90 (0-99); MEAN CELL HEMOGLOBIN 30.1 pg (27.9-34.1); MEAN CELL HEMOGLOBIN CONCENTR. 33.8 g/dL (32.4-36.7); MEAN PLATELET VOLUME 8.9 fL (8.7-11.7); PLATELET CLUMPS FLAG 10 (0-99); PLATELET COUNT 243 10^3/uL (150-400); RED BLOOD CELL COUNT 4.38 10^6/uL (4.40-6.38); RED CELL DISTRIBUTION WIDTH 12.5 % (11.5-15.2)
[2017-02-10 04:39] LABS: ALBUMIN 3.7 g/dL (3.5-5.0); ALKALINE PHOSPHATASE 52 IU/L (38-126); ANION GAP 11 mEq/L (8-16); BILIRUBIN,TOTAL 0.7 mg/dL (0.1-1.4); CALCIUM 8.2 mg/dL (8.5-10.4); CARBON DIOXIDE 22 mEq/l (22-31); CHLORIDE 108 mEq/L (97-110); CREATININE 0.9 mg/dL (0.7-1.3); GLOMERULAR FILTRATION RATE > 60; GLUCOSE 104 mg/dL (70-100); MAGNESIUM 2.2 mg/dL (1.6-2.3); POTASSIUM 4.5 mEq/L (3.5-5.2); SODIUM 141 mEq/L (134-144); TOTAL PROTEIN 6.5 g/dL (6.3-8.2)
[2017-02-10 04:55] LABS: ALANINE AMINOTRANSFERASE 1025 IU/L (21-72)
[2017-02-10 05:06] LABS: ASPARTATE AMINOTRANSFERASE 1636 IU/L (17-59)
[2017-02-10 05:29] LABS: CK-MB INTERPRETATION NEGATIVE (NEGATIVE)
--- NOTE | 2017-02-10 09:44 | GCON ---
[f rep st] CONSULTATION NEUROLOGIC CONSULTATION REFERRING PHYSICIAN: Yayo Torrez MD HISTORY: The patient is a 21-year-old young man, who has a history of depression, who was found in a local hotel, unresponsive, and EMS was activated immediately. The patient tells me that he went t o the hotel to "get away from the house." I asked him to explain that, and he has a hard time elabor ating on why he would do that, but says he has done it in the past. He apparently lives at home wit h family members and tells me that sometimes it is stressful. He denies that he was attempting suic adam but has no explanation for the bottle of lorazepam or any of the other situations suspicious for attempted suicide in the hotel. When he came to the hospital, he was quite lethargic but was not i n need of intubation. He was on an oxygen face mask. Narcan created some agitation, but his drug s creen did not show benzodiazepines or narcotics, but simply some THC. He admits to sometimes smokin g marijuana. He had also received a dose of lorazepam to help calm him when he became agitated. Th is helped facilitate a head CT, which showed hypodensity in the right basal ganglia suspicious for p ossible early ischemia but was nonspecific. The patient is currently denying headache, but says he has variable feelings of weakness and some mild pain in the right leg compared to the left. He says he has never attempted suicide in the past but has had depression for at least the last 6 or 7 year s. His psychiatrist is Dr. Rob. 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 He denies family history of seizure. ALLERGIES: No known allergies. MEDICATIONS: His medication when he came to the hospital as best we can ascertain is bupropion, [place] il, Abilify, and lorazepam. He says he occasionally drinks alcohol. He does not have a history of smoking cigarettes. REVIEW OF SYSTEMS: Negative for recent illness. Otherwise, 10-point review of systems unremarkable . PHYSICAL EXAM: VITAL SIGNS: Blood pressure is 131/84, pulse of 88, respirations 16, temperature 37 .2. GENERAL: He is a mildly overweight young man, lying in the bed, in no acute distress. EYES: Clear. NECK: Supple, with no bruits or masses. CARDIAC: Regular rate and rhythm. No murmur. He has a very flat affect. He is oriented and has very limited spontaneous speech but will answer my basic questions. He seems guarded in answering questions about his mental health and currently is d enying being suicidal and denies attempted suicide at a hotel but cannot give any explanation as to why he was there and under those circumstances beyond simply saying that he wanted to get away from his house. He denies any acute precipitating stressors. He did not express any specific bizarre th oughts, delusions or hallucinations. Pupils 2 mm and reactive. Extraocular movements are intact. Normal facial sensation. There might be a left lower facial weakness that is very subtle. Motor exam reveals just a little bit of weakne ss in the left upper extremity and less clear in the left lower extremity, with good strength on the right. Sensation is preserved for temperature and light touch. No ataxic movements. Reflexes are 2+ and symmetric, with no Babinski sign. The NIH stroke scale is 3. LABORATORY DATA: Laboratory studies show white count initially at 18,000, now at 14,000, hematocrit 43%. The initial chemistry showed potassium of 5.9, BUN of 32, creatinine of 2.2, but creatinine i s now 0.9. The elevated AST at 1479 is currently 1636, and the ALT is at 1025. The current CK leve l is 26,000, after initially being 14,000. The troponin level is currently 2.0. When he came in, i t was 2.36. Procalcitonin level of 2.13. Unremarkable urinalysis. Tox screen was non-negative for THC but otherwise unremarkable. I reviewed his head CT and agree that there is an area of hypodensity in the right basal ganglia, ar ound the internal capsule. IMPRESSION: The patient was found in an unresponsive state and has fairly quickly returned closer t o a presumed baseline, although he remains very depressed in his affect. The circumstances are high ly suspicious for a suicide attempt, despite the patient's current denial. At this point, there is no other logical explanation for why he would have been in that state with the bottle of lorazepam a nd apparently a syringe found in his rectum, although we did not see benzodiazepines on his screen. We do not know the exact time frame in which he may have taken an overdose. The head CT is suspici ous for acute ischemia in the right basal ganglia, and we will further clarify that with MRI. As to whether this represents a local thrombosis, part of hypoxemia or an embolic phenomena is too hard t o say at this stage. He has a history of major depression and certainly will need very close follow up and full psychiatric consultation here in the hospital and is not safe to be discharged. I will defer to Psychiatry on whether he will need inpatient psychiatry or outpatient management once he ge ts to his acute medical problems. At this point, he is not expressing any insight or clarity as to what exactly occurred that led to these events. We will speak with family if he allows. For now, I am not sending any information to his treating psychiatrist until the patient gives authorization, but it will certainly be helpful if Dr. Rob can be made aware of what has occurred. The total unit time was 75 minutes. /[id number]/MODL
[2017-02-10] MEDS: ERTAPENEM 0.5 GM in NS 50 ML IV SCH (09:49)
[2017-02-10] MEDS ORDERED: GADOBUTROL 10 ML VIAL IVP ONE (11:45)
--- NOTE | 2017-02-10 13:54 | WOCRNPDOC ---
WOCRN Advanced Assessment Note - Skin Integrity Problem, Advanced Assess Right Posterior Ankle Dressing Type: ABD Pad, Kerlix, Mepilex Transfer Dressing Description: Clean/Dry, Intact Integumentary Issue Intervention: Visualized Under Dressing Wound Bed Constitution: Intact Serous Filled Blister Skin Integrity Problem Comment: Wound has evolved into a serous filled blister. Protect blister and allow it to evolve without rupturing it. Wound care will round again next week. Left Lateral Knee Dressing Type: Allevyn Life Dressing Description: Clean/Dry, Intact Integumentary Issue Intervention: Visualized Under Dressing Wound Bed Constitution: Intact Serous Filled Blister Skin Integrity Problem Comment: Wound is evolving into two serous filled blisters. Protect blister and allow it to evolve without rupturing it. Wound care will round again next week. Right Lateral Thigh Dressing Type: Open to Air Skin Integrity Problem Comment: Erythema much less pronounced than yesterday. Continue plan of care. Lower Medial Abdomen Dressing Type: Open to Air Skin Integrity Problem Comment: Erythema much less pronounced than yesterday. Continue plan of care.
--- NOTE | 2017-02-10 14:11 | GCON ---
[f rep st] CONSULTATION [facility] ATTENDANT CONSULTATION REASON FOR ADMISSION: Encephalopathy. HISTORY OF PRESENT ILLNESS: The patient is a 21-year-old white male with a past medical history of a closed head injury in April 2006. He was found unresponsive at a hotel. EMS was subsequently consulted. He was brought to the emergency room. He had a bottle of Ativan near his bed and also a bottle containing unidentified liquid that was possibly a fentanyl-like medication. He was subseque ntly tachypneic and breathless, was placed on supplemental oxygen. [facility]. The patient is somnolent but arousable. All history is gleaned from medical record. PAST MEDICAL HISTORY: Significant for closed injury in April 2016. PAST SURGICAL HISTORY: Unknown. SOCIAL HISTORY: No history of tobacco use, but apparently some drug abuse. PHYSICAL EXAMINATION: VITAL SIGNS: Blood pressure is 140/89, pulse 96, respirations 12, temperatur e 37.4, oxygen saturation 96% on room air. GENERAL: He is a moderately-overweight 21-year-old whit e male who is somnolent but resting comfortably HEENT: Eyes: PERRL. EOMI. Throat shows no erythem a or tonsillar hypertrophy. NECK: Supple. No cervical adenopathy. HEART: Regular rate and rhyth m without murmurs, rubs, or gallops. LUNGS: Diminished breath sounds but no wheeze. ABDOMEN: Sof t, nontender. Bowel sounds are present in all 4 quadrants. EXTREMITIES: No clubbing, cyanosis, or edema. LABORATORIES: White count 14,000, hemoglobin 13, hematocrit 39, platelet count 243. INR is 1.29. A rterial blood gas: PH 7.38, pCO2 of 33, pO2 of 69, bicarb 20, oxygen saturation 92%. Sodium is 141, potassium 4.5, chloride 108, CO2 is 22, BUN 22, creatinine 0.9, glucose is 104. AST is markedly el evated at 1636, ALT is elevated at 1025. CPK is elevated at 26,566. TSH is 5.9. Urine drug screen is negative for marijuana. CT scan of the head shows artifact versus ischemia in the right basal ganglia. Repeat head CT shows again possible ischemia involving the internal capsule. Echocardiogram shows ejection fraction of 35% to 45% with [id number] global hypokinesis. IMPRESSION: 1. Acute encephalopathy likely secondary to drug use. 2. Acute renal failure. 3. Rhabdomyolysis. 4. Acute myocardial infarction with reduced cardiac function. 5. Possible brain ischemia. 6. Polysubstance abuse. RECOMMENDATIONS: 1. Close cardiovascular monitoring. 2. Agree with MRI. 3. Agree with cardiology consult. 4. DVT and PE prophylaxis. 5. Stress ulcer prophylaxis. 6. Follow chemistries closely. 7. Follow CPK closely. /[id number]/MODL
--- NOTE | 2017-02-10 14:23 | HOSPPROG ---
Hospitalist Progress Note Assessment/Plan: Assessment: 21-year-old male presents with acute encephalopathy in the setting of opiate overdose w/ resultant acute CVA, NSTEMI, RADHA Plan: 1. Acute encephalopathy. 2/2 opiate overdose, and likely exacerbated by metabolic acidosis, aspiration PNA, and acute CVA - improving today, still remains somnolent and below baseline 2. Non ST-elevation myocardial infarction. Evidenced by troponin of 2.3, no active ischemic changes on EKG, echo w/ likely stress induced decline in EF 35- 45% w/ apical hypokinesis, no cath indicated - cards consult appreciated 3. Aspiration PNA. Leukocytosis, fever, CT chest w/ basilar infiltrates ( personally interpreted), PCT 2.1 - D#2 invanz 4. Metabolic acidosis. Acute, continue IV fluids 5. Acute kidney injury. Most likely secondary to prolonged down time, creatinine improved w/ IVF, suspected that he does not have rhabdo-ATN - cont monitor UOP 6. Hyperkalemia. Secondary to acute kidney injury and reduced excretion, continue IV fluids, continue to monitor closely 7. Rhabdomyolysis. Acute, worsening today despite IVF, cont IVF 8. Opiate overdose. Patient admits to ingestion of fentanyl-derivative he obtained online, denies co-ingestants, but does have physical exam findings consistent with huffing - patient endorses depression, denies SI, appears to be be somewhat distrustful and I suspect he may be withholding information - long conversation with parents and patients, concerns raised regarding possible intention to harm self w/ drug ingestion - placed on M1 hold, explained to patient/family 9. Acute CVA. Located in basal ganglia, suspect this is watershed - MRI w/ infarct, d/w Dr. Yin - neuro consulted - will check A1c/LDL risk factors Diet. NPO, LOG SCALER eval Prophylaxis. High risk patient, has bleeding risk given possible brain ischemia , placed on SCDs Code. Full at present Disposition. Anticipated discharge uncertain this time, patient remains critically ill with high risk of worsening morbidity and/or mortality. 45 minutes of critical care time spent at bedside with patient, addressing the issues above, patient remains critically ill. Subjective: patient remains somnolent, but cooperative Objective: Vital Signs Temp Pulse Resp BP Pulse Ox 37.4 C 96 12 140/89 H 96 02/10/17 08:00 02/10/17 11:00 02/10/17 11:00 02/10/17 11:00 02/10/17 11:00 Laboratory Results 02/10/17 04:05 02/10/17 04:05 02/09/17 02/10/17 02/11/17 05:59 05:59 05:59 Intake Total 3083 Output Total 1600 Balance 1483 PT 16.1 SEC (12.0-15.0) H 02/09/17 15:33 INR 1.29 (0.83-1.16) H 02/09/17 15:33 - Physical Exam Constitutional: no apparent distress, not in pain, obese, No uncomfortable Eyes: PERRL, anicteric sclera, EOMI Ears, Nose, Mouth, Throat: moist mucous membranes, hard of hearing Cardiovascular: regular rate and rhythym, no murmur, rub, or gallop, No irregularly irregular, No edema Respiratory: reduced air movement, inspiratory crackles (bilat bases), No expiratory wheeze, No bronchial breath sounds Gastrointestinal: normoactive bowel sounds, soft, non-tender abdomen, no palpable masses Skin: other (facial acne, bilat thigh excoriations, left knee blanchable erythema well circumscribed, less erythema lower abd) Neurologic: sensation intact bilaterally, weakness (4/5 RLE, 5/5 all others), other (AAOx2 (person and time, not place)), No facial droop Psychiatric: not anxious, encephalopathic, flat affect, poor memory, other ( concentration 5/7), No agitated ICD10 Worksheet Patient Problems: Problems Problem Status Onset Concussion Acute Altered mental status Acute Acute renal failure Acute Hyperkalemia Acute Elevated troponin Acute Congestive heart failure Acute Rhabdomyolysis Acute
[2017-02-10 15:23] LABS: MISCELLANEOUS TEST See Comments
--- NOTE | 2017-02-10 22:15 | PDCARPN ---
Cardiology Progress Note Chief Complaint: I am not feeling well. Assessment/Plan: Assessment:1. Stress induced cardiomyopathy likely secondary to severe respiratory depression, near cardiovascular collapse, hypotension, acidosis all apparently secondary to fentanyl analog overdose. Also evidence of freezing injury secondary to "huffing" of a pressurized canister of a keyboard bobbin cleaner hand. I have contacted pathology and ordered initial blood samples to be sent for inhaled hydrocarbons as well as other synthetic opiate analogs. Inhaled legal writing professor have been associated with chronic cv injury. I will repeat limited echo to assess lv function and wall motion. The patient has a history of recurrent syncope that has been suspected secondary to drug abuse. Chronically low EF from chronic toxic injury to the myocardium should be ruled out. If the EF is not improved intermittent tachydysrhythmia should be considered. Other problems per hospitalist and body worker team. Plan: As above. 02/10/17 22:02 Reviewed/Discussed With: family, multidisciplinary team Time Spent With Patient: Over 35 minutes coordinating care and diagnosis steps with nurse, mother of patient and pathologist to help determine the risk of chronic myocardial toxicity. Objective: Vital Signs (8 Hrs) Temp Pulse Resp BP Pulse Ox 02/10/17 21:09 37.7 C 94 18 135/87 H 100 02/10/17 20:00 37.8 C 106 H 18 140/94 H 100 02/10/17 18:00 93 14 143/88 H 99 02/10/17 16:00 88 12 134/88 H 98 Intake/Output (24 Hrs) 02/09/17 02/10/17 02/11/17 05:59 05:59 05:59 Intake Total 3083 1949 Output Total 1600 1350 Balance 1483 599 Intake: Oral (ml) 0 1240 IV Infused (ml) 3083 709 Ns 1,000 ml @ 100 mls/hr 1083 709 IV CONT YVETTE Rx#: [id number] Output: Urine (ml) 1600 1350 Catheter 1100 1350 MAZIN Drain Output (ml) 0 #1 Posterior Back Tee 0 Martinez Other: Weight 125.5 kg 125.5 kg Result Diagrams: 02/10/17 04:05 02/10/17 04:05 Cardiac Labs: Cardiac Lab Results (72 Hrs) 02/10/17 02/09/17 04:05 15:27 CK-MB (CK-2) Fraction 55.00 H Troponin I 2.010 H 2.200 H Telemetry: sinus rhythm without significant tachy or zofia dysrhtyhmia - Physical Exam Constitutional: obese, other (anhedonic depressed) Eyes: anicteric sclera, other (unequal pupils) Ears, Nose, Mouth, Throat: moist mucous membranes Cardiovascular: regular rate and rhythm, no murmurs, no rubs, no gallops, pulses symmetric bilat Respiratory: clear to auscultate bilat, no crackles, no wheezes, reduced air movement Gastrointestinal: normoactive bowel sounds, no tenderness, other (no guarding or rebound ) Skin: warm, rash, other (round burn on thigh is likely freezing injury from huffing) ICD10 Worksheet Patient Problems: Problems Problem Status Onset Acute renal failure Acute Altered mental status Acute Congestive heart failure Acute Elevated troponin Acute Hyperkalemia Acute Rhabdomyolysis Acute Concussion Acute
[2017-02-11 05:43] LABS: % IMMATURE GRANULYOCYTES 0.5 % (0.0-1.1); ABSOLUTE IMMATURE GRANULOCYTES 0.05 10^3/uL (0.00-0.10); ADD DIFF? NO; ADD MORPH? NO; ADD SCAN? NO; ATYPICAL LYMPHOCYTE FLAG 0 (0-99); FRAGMENT RBC FLAG 0 (0-99); HEMATOCRIT 39.1 % (40.0-51.0); HEMOGLOBIN 13.4 g/dL (13.7-17.5); LEFT SHIFT FLG 0 (0-99); LIPEMIA HEMOLYSIS FLAG 90 (0-99); MEAN CELL HEMOGLOBIN 30.1 pg (27.9-34.1); MEAN CELL HEMOGLOBIN CONCENTR. 34.3 g/dL (32.4-36.7); MEAN CELL VOLUME 87.9 fL (81.5-99.8); MEAN PLATELET VOLUME 9.1 fL (8.7-11.7); PLATELET CLUMPS FLAG 20 (0-99); PLATELET COUNT 227 10^3/uL (150-400); RED BLOOD CELL COUNT 4.45 10^6/uL (4.40-6.38); RED CELL DISTRIBUTION WIDTH 12.4 % (11.5-15.2)
[2017-02-11 06:20] LABS: ALBUMIN 3.6 g/dL (3.5-5.0); ALKALINE PHOSPHATASE 58 IU/L (38-126); ANION GAP 10 mEq/L (8-16); BILIRUBIN,TOTAL 0.9 mg/dL (0.1-1.4); CALCIUM 8.7 mg/dL (8.5-10.4); CARBON DIOXIDE 20 mEq/l (22-31); CHLORIDE 108 mEq/L (97-110); CHOLESTEROL 153 mg/dL (140-200); CHOLESTEROL/HDL RATIO 3.56 RATIO (1.00-4.97); CREATININE 0.7 mg/dL (0.7-1.3); GLOMERULAR FILTRATION RATE > 60; GLUCOSE 86 mg/dL (70-100); HIGH DENSITY LIPOPROTEIN 43 mg/dL (40-70); LDL/HDL RATIO 1.91 RATIO (1.00-3.64); LOW DENSITY LIPOPROTEIN 82 mg/dL (60-100); MAGNESIUM 1.9 mg/dL (1.6-2.3); NON-HIGH DENSITY LIPOPROTEIN 110 mg/dL (90-129); POTASSIUM 4.3 mEq/L (3.5-5.2); SODIUM 138 mEq/L (134-144); TOTAL PROTEIN 6.5 g/dL (6.3-8.2); TRIGLYCERIDE 142 mg/dL (40-150); VERY LOW DENSITY LIPOPROTEINS 28 mg/dL (8-25)
[2017-02-11 06:45] LABS: ALANINE AMINOTRANSFERASE 1061 IU/L (21-72); ASPARTATE AMINOTRANSFERASE 1045 IU/L (17-59)
[2017-02-11 07:35] LABS: CK-MB INTERPRETATION NEGATIVE (NEGATIVE)
[2017-02-11 08:35] LABS: CREATINE KINASE-MB FRACTION 9.93 ng/mL (0.00-3.19)
[2017-02-11] MEDS ORDERED: ERTAPENEM 1 GM in NS 50 ML IV SCH (09:00)
[2017-02-11] MEDS ORDERED: NON-FORMULARY NEW DRUG (Bupropion Hcl [Wellbutrin Xl] 300 MG) PO SCH (09:00)
--- NOTE | 2017-02-11 09:00 | PDINTPN ---
Borematic Operator Progress Note Assessment/Plan: Assessment: * Stressed induced cardiomyopathy-ejection fraction 35-45% * Aspiration pneumonia versus fluid overload-clinically is more likely fluid overload * Non ST elevation myocardial infarction * Acute renal failure-resolved * Rhabdomyolysis-CPK has peaked and is on the way down. * Polysubstance overdose-Ativan and opiates Plan: Continue close cardiovascular monitoring Continue IV fluids Cardiology following Mental health evaluation Subjective: Resting comfortably. Objective: Vital Signs Temp Pulse Resp BP Pulse Ox 37.7 C 89 20 142/89 H 97 02/11/17 06:00 02/11/17 06:00 02/11/17 06:00 02/11/17 06:00 02/11/17 06:00 Laboratory Results 02/11/17 05:00 02/11/17 05:38 02/10/17 02/11/17 02/12/17 05:59 05:59 05:59 Intake Total 3083 3326 Output Total 1600 3050 Balance 1483 276 PT 16.1 SEC (12.0-15.0) H 02/09/17 15:33 INR 1.29 (0.83-1.16) H 02/09/17 15:33 Laboratory Results 02/11/17 05:00 02/11/17 05:38 02/11/17 05:38 Calcium 8.7 mg/dL mg/dL (8.5 - 10.4) Phosphorus 2.8 mg/dL mg/dL (2.5 - 4.5) Magnesium 1.9 mg/dL mg/dL (1.6 - 2.3) Total Bilirubin 0.9 mg/dL mg/dL (0.1 - 1.4) AST 1045 IU/L H IU/L (17 - 59) ALT 1061 IU/L H IU/L (21 - 72) Alkaline Phosphatase 58 IU/L IU/L (38 - 126) Creatine Kinase 00273 IU/L H IU/L (0 - 224) CK-MB (CK-2) Fraction 9.93 ng/mL H ng/mL (0.00 - 3.19) CK-MB (CK-2) % 0.1 % % (0.0 - 4.0) Creatine Kinase Interp NEGATIVE Total Protein 6.5 g/dL g/dL (6.3 - 8.2) Albumin 3.6 g/dL g/dL (3.5 - 5.0) Triglycerides 142 mg/dL mg/dL (40 - 150) Cholesterol 153 mg/dL mg/dL (140 - 200) Cholesterol Risk Factr 0.6 (0.2 - 1.0) LDL Cholesterol, Calc 82 mg/dL mg/dL (60 - 100) LDL Risk Factor 0.8 (0.2 - 1.0) VLDL Cholesterol 28 mg/dL H mg/dL (8 - 25) Non-HDL Cholesterol 110 mg/dL mg/dL (90 - 129) HDL Cholesterol 43 mg/dL mg/dL (40 - 70) LDL/HDL Ratio 1.91 RATIO RATIO (1.00 - 3.64) Cholesterol/HDL Ratio 3.56 RATIO RATIO (1.00 - 4.97) Physical Exam - Physical Exam General Appearance: alert, no apparent distress EENT: PERRL/EOMI, normal ENT inspection, pharynx normal, TMs normal Neck: non-tender, full range of motion, supple, normal inspection Respiratory: chest non-tender, lungs clear, normal breath sounds Cardiac/Chest: normal peripheral pulses, regular rate, rhythm Abdomen: normal bowel sounds, non-tender, soft Male Genitalia: deferred Rectal: deferred Skin: normal color, warm/dry Extremities: normal range of motion, non-tender, normal inspection, normal capillary refill ICD10 Worksheet Patient Problems: Problems Problem Status Onset Acute renal failure Acute Altered mental status Acute Congestive heart failure Acute Elevated troponin Acute Hyperkalemia Acute Rhabdomyolysis Acute Concussion Acute
[2017-02-11] MEDS: ERTAPENEM 1 GM in NS 100 ML IV SCH (09:28)
[2017-02-11] MEDS: ASPIRIN EC 81 MG TAB PO SCH (09:29)
[2017-02-11] MEDS: PARoxetine HCL 20 MG TAB PO SCH (09:29)
[2017-02-11] MEDS: ARIPiprazole 2 MG TAB PO SCH (09:29)
[2017-02-11] MEDS: buPROPion XL 150 MG TAB PO SCH (09:29)
--- NOTE | 2017-02-11 09:48 | NEUROPROG ---
Assessment: Strokes in basal ganglia left more than right with left hemiparesis. Stable. Discussed with patient and his mother. Generally good prognosis. Subjective: Pt reports feeling OK. Objective: Vital Signs Temp Pulse Resp BP Pulse Ox 37.4 C 74 21 H 156/97 H 97 02/11/17 09:00 02/11/17 09:00 02/11/17 09:00 02/11/17 09:00 02/11/17 09:00 Laboratory Results 02/11/17 05:00 02/11/17 05:38 02/10/17 02/11/17 02/12/17 05:59 05:59 05:59 Intake Total 3083 3326 Output Total 1600 3050 Balance 1483 276 PT 16.1 SEC (12.0-15.0) H 02/09/17 15:33 INR 1.29 (0.83-1.16) H 02/09/17 15:33 Mild left face, arm and leg weakness. Depressed affect. MRI show right internal capsule acute ischemia and mild on the left basal ganglia as well. Allergies/Adverse Reactions: No Known Allergies Allergy (Verified 05/10/16 15:40)
--- NOTE | 2017-02-11 10:52 | ECHO ---
[id number] + + [address] : : [place] [address] : : [phone] + + Adult Echocardiographic Report + ------+ :Name: ISAAC MALIK LStudy Date: 02/11/2017 07:39 AM : : Hospital Admission Number: [id number] Locatio n: 251: :: 1995 Gender: Male Height: 73 in : :Age: 21 yrs Race: WH Weight: 276 lb : :Reason For Study: Eval LV Fx : : BSA: 2.5 meters 2 : :History: F/U Elevated Troponins : + ------+ MMode/2D Measurements \T\ Calculations IVSd: 1.2 cm LVIDd: 4.7 cmFS: 26.1 % LVLd ap4: 9.4 cm LVPWd: 1.2 cm LVIDs: 3.5 cmEDV(Teich): 100.7 mlEDV(MOD-sp4): 95.0 ml ESV(Teich): 49.2 ml LVLs ap4: 8.2 cm EF(Teich): 51.2 % ESV(MOD-sp4): 52.0 ml EF(MOD-sp4): 45.3 % SV(MOD-sp4): 43.0 ml Normal Measurement Values: + + :LVIDd (3.5-5.7cm) IVSd (0.6-1.1cm) LVPWd (0.6-1.1cm) Aortic Root (2.0-3.7cm)Left Atrium (1.5-4.0cm): :LV Vol(d) (76-115ml) LV Vol(s) (29-48ml) Ejec Fraction (50-65%)PV Cam (0.6- 1.2m/s) TV Cma (0.4-1.0m/s) : :MV E Cam (0.8-1.0m/s)MV A Cam (0.3-1.0m/s)LVOT Cam (0.7-1.2m/s) Asc Ao Cam ( 0.9-1.8m/s) : + + Left Ventricle Ejection Fraction = 50-55%. The left ventricular ejection fraction is calculated at 51.2 %. There is subtle apical hypokinesis. Conclusion A complete two-dimensional transthoracic echocardiogram was performed (2D, M-mode, Doppler and color flow Doppler). Ejection Fraction = 50-55%. There is subtle apical hypokinesis. It appears that there has been some improvement in the overall left ventricular systolic function, but there continues to be some degree of apical hypokinesis noted Final Reading Physician: Iva Cuevas signed on 02/11/2017 10:51 AM Ordering Physician: Ryne Muse Performed By: Jae Beltre, CS
[2017-02-11 11:21] LABS: HEMOGLOBIN A1C 5.5 % (4.0-6.0)
--- NOTE | 2017-02-11 15:05 | ASMTCASEMG ---
Living Arrangements What is your living Answers: With One Parent arrangement? Who do you live with? Type Of Residence What kind of residence do Answers: House you live in? Case Management Evaluation Psychosocial Needs: Answers: Behavioral Health Issue Discharge Plan Comments Coordination Status Comments Notes: Patient was found unarousable in a hotel room with a bottle of ativan by his bedside. EMS brought patient to [facility] and he was admitted for altered mentation, acute renal failure, and hyperkalemia. Patient has been placed on an M1 and will need a mental health evaluation when he is medically cleared. If patient is not admitted to a behavioral health unit, Dr. Torrez would like patient to attend an inpatient rehab program. Contacted [facility] inpatient rehab and they state they will not get to the eval until Tuesday of next week. CM will follow. Date Signed: 02/11/2017 03:05 PM Electronically Signed By:Molly Drake
[2017-02-11] MEDS: NS 1,000 ML IV SCH (15:29)
--- NOTE | 2017-02-11 16:27 | HOSPPROG ---
Hospitalist Progress Note Assessment/Plan: Assessment: 21-year-old male presents with acute encephalopathy in the setting of opiate overdose w/ resultant acute CVA, NSTEMI, RADHA Plan: 1. Acute encephalopathy. 2/2 opiate overdose, and likely exacerbated by metabolic acidosis, aspiration PNA, and acute CVA - improved 2. Non ST-elevation myocardial infarction. Evidenced by troponin of 2.3, no active ischemic changes on EKG, echo w/ likely stress induced decline in EF 35- 45% w/ apical hypokinesis, no cath indicated 3. Aspiration PNA. Leukocytosis, fever, CT chest w/ basilar infiltrates ( personally interpreted), PCT 2.1 - D#3 invanz - leukocytosis improving 4. Metabolic acidosis. Acute, improved 5. Acute kidney injury. Most likely secondary to prolonged down time, creatinine improved w/ IVF, suspect that he does not have rhabdo-ATN - cont monitor UOP 6. Hyperkalemia. Secondary to acute kidney injury and reduced excretion, continue IV fluids, continue to monitor closely 7. Rhabdomyolysis. Acute, remains significantly elevated, increase IVF to NS 150/hr - repeat CPK tomorrow, not medically clear as yet 8. Opiate overdose. Patient admits to ingestion of fentanyl-derivative he obtained online, denies co-ingestants, but does have physical exam findings consistent with huffing - patient endorses depression, denies SI, appears to be be somewhat distrustful and I suspect he may be withholding information - on M1 hold, plan for TLC eval tomorrow if medically cleared 9. Acute basal ganglia CVA. Located in basal ganglia, suspect this is watershed - MRI w/ infarct and corresponding L hemiparesis - appreciate neuro consult - cont ASA 81, hold on statin given rhabdo - counseled patient and family that inpatient rehab consult placed, he would be a good candidate 10. Cardiomyopathy. Suspect non-ischemic, suspect 2/2 roe, d/w Dr. Muse, EF recovered on Echo Diet. Regular Prophylaxis. High risk patient, SCDs, start lovenox tomorrow Code. Full at present Disposition. Anticipated discharge uncertain this time, patient remains critically ill with high risk of worsening morbidity and/or mortality. Subjective: counseled patient and mother extensively regarding asp pna, rehab, ongoing care plan Objective: Vital Signs Temp Pulse Resp BP Pulse Ox 37.4 C 95 20 123/71 H 98 02/11/17 12:00 02/11/17 15:00 02/11/17 15:00 02/11/17 15:00 02/11/17 15:00 Laboratory Results 02/11/17 05:00 02/11/17 05:38 02/10/17 02/11/17 02/12/17 05:59 05:59 05:59 Intake Total 3083 3326 Output Total 1600 3050 1350 Balance 1483 276 -1350 PT 16.1 SEC (12.0-15.0) H 02/09/17 15:33 INR 1.29 (0.83-1.16) H 02/09/17 15:33 - Time Spent With Patient Time Spent with Patient: greater than 35 minutes Time Spent with Patient: Greater than 35 minutes spent on this patients care, greater than 50% of time spent counseling, educating, and coordinating care regarding the above mentioned plan. - Physical Exam Constitutional: obese, uncomfortable Cardiovascular: regular rate and rhythym, no murmur, rub, or gallop, edema ( trace bilat LE) Respiratory: inspiratory crackles (L base), No reduced air movement, No expiratory wheeze, No bronchial breath sounds Gastrointestinal: normoactive bowel sounds, soft, non-tender abdomen, no palpable masses Skin: other (acne, circumscribed patch L knee, blanchable) Neurologic: AAOx3, sensation intact bilaterally, weakness (4/5 LUE/LLE) Psychiatric: anxious, flat affect, No agitated ICD10 Worksheet Patient Problems: Problems Problem Status Onset Concussion Acute Altered mental status Acute Acute renal failure Acute Hyperkalemia Acute Elevated troponin Acute Congestive heart failure Acute Rhabdomyolysis Acute
[2017-02-11] MEDS ORDERED: LORazepam 0.5 MG TAB PO ONE (16:29)
--- NOTE | 2017-02-11 18:42 | PDCARPN ---
Cardiology Progress Note Assessment/Plan: Assessment:1. Stress induced cardiomyopathy likely secondary to severe respiratory depression, near cardiovascular collapse, hypotension, acidosis all apparently secondary to fentanyl analog overdose. Also evidence of freezing injury secondary to "huffing" of a pressurized canister of a keyboard suede cleaner. I have contacted pathology and ordered initial blood samples to be sent for inhaled hydrocarbons as well as other synthetic opiate analogs. Inhaled supervisor of operations have been associated with chronic cv injury. I will repeat limited echo to assess lv function and wall motion. (THIS REVEALED SIGNIFICANT IMPROVEMENT IN LV FUNCTION AND EVIDENCE OF EF OF 50% UP FROM 35% ON ADMISSION.) The patient has a history of recurrent syncope that has been suspected secondary to drug abuse. Chronically low EF from chronic toxic injury to the myocardium should be ruled out. If the EF is not improved intermittent tachydysrhythmia should be considered. 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 GIVEN THAT THE PATIENT'S ECHOCARDIOGRAM HAS SIGNIFICANTLY IMPROVED IN ONLY A COUPLE OF DAYS THE INITIAL FINDINGS ARE MOST CONSISTENT WITH MYOCARDIAL STRAIN AND STUNNING PRESUMABLY FROM DIRECT TOXICITY AND /OR RESPIRATORY DEPRESSION AND ACIDOSIS... THE PATIENT HAS NOT HAD SIGNIFICANT TACHY OR NIYA DYSRHYTHMIA ON TELEMETRY AND THEREFORE DOES NOT HAVE A CARDIAC CONTRAINDICATION FOR IN PATIENT REHAB FOR PURPOSES OF REHAB FROM HIS NEUROLOGICAL INJURY. WE WILL SIGN OFF PLEASE RECONSULT NECESSARY. Plan: As above. 02/11/17 18:36 Reviewed/Discussed With: family, hospitalist, multidisciplinary team Time Spent With Patient: TOTAL TIME SPENT ON AND OFF UNIT COORDINATING CARE EVALUATION OF ECHO IMAGES ETC... WAS 25 MINUTES Objective: Vital Signs (8 Hrs) Temp Pulse Resp BP Pulse Ox 02/11/17 18:00 89 12 147/78 H 97 02/11/17 16:00 98 20 146/91 H 97 02/11/17 15:00 95 20 123/71 H 98 02/11/17 14:00 86 19 136/89 H 98 02/11/17 13:00 98 18 137/79 H 98 02/11/17 12:49 86 141/84 H 02/11/17 12:00 37.4 C 87 17 176/98 H 99 Intake/Output (24 Hrs) 02/10/17 02/11/17 02/12/17 05:59 05:59 05:59 Intake Total 3083 3326 1851 Output Total 1600 3050 1550 Balance 1483 276 301 Intake: Oral (ml) 0 1540 500 IV Intake (ml) 1351 IV Infused (ml) 3083 1786 Ns 1,000 ml @ 150 mls/hr 1083 1786 IV CONT YVETTE Rx#: [id number] Output: Urine (ml) 1600 3050 1550 Catheter 1100 3050 1350 Urinal 200 MAZIN Drain Output (ml) 0 #1 Posterior Back Tee 0 Martinez Other: Weight 125.5 kg 125.5 kg 122 kg Output Comment Urinal + incontinence Bladder Scan Volume (ml) Urinal 333 Result Diagrams: 02/11/17 05:00 02/11/17 05:38 Cardiac Labs: Cardiac Lab Results (72 Hrs) 02/11/17 02/10/17 02/09/17 05:38 04:05 15:27 CK-MB (CK-2) Fraction 9.93 H 55.00 H Troponin I 2.010 H 2.200 H EKG: SINUS RHYTHM Telemetry: SINUS RHYTHM NO SIGNIFICANT ECTOPY Echocardiogram: PLEASE SEE REPORT OF IMPROVED EJECTION FRACTION UNDER SEPARATE COVER... ICD10 Worksheet Patient Problems: Problems Problem Status Onset Acute renal failure Acute Altered mental status Acute Congestive heart failure Acute Elevated troponin Acute Hyperkalemia Acute Rhabdomyolysis Acute Concussion Acute
[2017-02-12 05:12] LABS: % IMMATURE GRANULYOCYTES 0.3 % (0.0-1.1); ABSOLUTE IMMATURE GRANULOCYTES 0.03 10^3/uL (0.00-0.10); ADD DIFF? NO; ADD MORPH? NO; ADD SCAN? NO; ATYPICAL LYMPHOCYTE FLAG 0 (0-99); FRAGMENT RBC FLAG 0 (0-99); HEMATOCRIT 38.2 % (40.0-51.0); HEMOGLOBIN 13.3 g/dL (13.7-17.5); LEFT SHIFT FLG 0 (0-99); LIPEMIA HEMOLYSIS FLAG 90 (0-99); MEAN CELL HEMOGLOBIN 30.1 pg (27.9-34.1); MEAN CELL HEMOGLOBIN CONCENTR. 34.8 g/dL (32.4-36.7); MEAN CELL VOLUME 86.4 fL (81.5-99.8); MEAN PLATELET VOLUME 9.2 fL (8.7-11.7); PLATELET CLUMPS FLAG 10 (0-99); PLATELET COUNT 252 10^3/uL (150-400); RED BLOOD CELL COUNT 4.42 10^6/uL (4.40-6.38); RED CELL DISTRIBUTION WIDTH 12.2 % (11.5-15.2)
[2017-02-12 05:44] LABS: ALANINE AMINOTRANSFERASE 725 IU/L (21-72); ALBUMIN 3.6 g/dL (3.5-5.0); ALKALINE PHOSPHATASE 53 IU/L (38-126); ANION GAP 12 mEq/L (8-16); ASPARTATE AMINOTRANSFERASE 480 IU/L (17-59); BILIRUBIN,TOTAL 0.9 mg/dL (0.1-1.4); CALCIUM 8.9 mg/dL (8.5-10.4); CARBON DIOXIDE 19 mEq/l (22-31); CHLORIDE 109 mEq/L (97-110); CREATININE 0.7 mg/dL (0.7-1.3); GLOMERULAR FILTRATION RATE > 60; GLUCOSE 91 mg/dL (70-100); MAGNESIUM 1.8 mg/dL (1.6-2.3); SODIUM 140 mEq/L (134-144); TOTAL PROTEIN 6.2 g/dL (6.3-8.2)
[2017-02-12 07:24] LABS: CK-MB INTERPRETATION NEGATIVE (NEGATIVE); CREATINE KINASE-MB FRACTION 4.37 ng/mL (0.00-4.55)
[2017-02-12] MEDS: ARIPiprazole 2 MG TAB PO SCH (09:06)
[2017-02-12] MEDS: ERTAPENEM 1 GM in NS 100 ML IV SCH (09:06)
[2017-02-12] MEDS: buPROPion XL 150 MG TAB PO SCH (09:06)
[2017-02-12] MEDS: PARoxetine HCL 20 MG TAB PO SCH (09:06)
[2017-02-12] MEDS: ASPIRIN EC 81 MG TAB PO SCH (09:06)
--- NOTE | 2017-02-12 09:24 | PDINTPN ---
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 * Polysubstance overdose-Ativan and opiates Plan: Medically cleared Awaiting Mental Health evaluation Subjective: Awake and alert peer Objective: Vital Signs Temp Pulse Resp BP Pulse Ox 36.6 C 67 19 121/55 H 95 02/12/17 08:00 02/12/17 08:00 02/12/17 08:00 02/12/17 08:00 02/12/17 08:00 Laboratory Results 02/12/17 05:00 02/12/17 05:00 02/11/17 02/12/17 02/13/17 05:59 05:59 05:59 Intake Total 3326 4027 Output Total 3050 1550 Balance 276 2477 PT 16.1 SEC (12.0-15.0) H 02/09/17 15:33 INR 1.29 (0.83-1.16) H 02/09/17 15:33 Physical Exam - Physical Exam General Appearance: alert, no apparent distress EENT: PERRL/EOMI, normal ENT inspection, pharynx normal, TMs normal Neck: non-tender, full range of motion, supple, normal inspection Respiratory: chest non-tender, lungs clear, normal breath sounds Cardiac/Chest: normal peripheral pulses, regular rate, rhythm, systolic murmur Abdomen: normal bowel sounds, non-tender, soft Male Genitalia: deferred Rectal: deferred Skin: normal color, warm/dry Extremities: normal range of motion, non-tender, normal inspection, normal capillary refill Neuro/Psych: alert ICD10 Worksheet Patient Problems: Problems Problem Status Onset Acute renal failure Acute Altered mental status Acute Congestive heart failure Acute Elevated troponin Acute Hyperkalemia Acute Rhabdomyolysis Acute Stroke Acute Concussion Acute
[2017-02-12] MEDS ORDERED: NS 1,000 ML IV SCH (13:00)
--- NOTE | 2017-02-12 15:46 | ASMTCMCOM ---
CM Note CM Note Notes: Spoke with PT today regarding pt's need for inpt rehab. Mckenzie stated that pt has cognitive deficits and cannot do self-care. He also can't walk on his own and is impulsive. Inpt rehab eval will not be until Tuesday. C/M to follow. Date Signed: 02/12/2017 03:45 PM Electronically Signed By:Sepideh Caldwell
--- NOTE | 2017-02-12 16:54 | HOSPPROG ---
Hospitalist Progress Note Assessment/Plan: Assessment: 21-year-old male presents with acute encephalopathy in the setting of opiate overdose w/ resultant acute CVA, NSTEMI, RADHA Plan: 1. Acute encephalopathy. 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 Non ST-elevation myocardial infarction. Evidenced by troponin of 2.3, no active ischemic changes on EKG, echo w/ likely stress induced decline in EF 35- 45% w/ apical hypokinesis, EF recovered on repeat Echo, no cath indicated 3. Aspiration PNA. Leukocytosis, fever, CT chest w/ basilar infiltrates ( personally interpreted), PCT 2.1 - D#4/5 invanz - leukocytosis improving, repeat CBC in AM 4. Metabolic acidosis. Acute, improved 5. Acute kidney injury. Most likely secondary to prolonged down time, creatinine improved w/ IVF, suspect that he does not have rhabdo-ATN 6. Hyperkalemia. Secondary to acute kidney injury and reduced excretion, continue IV fluids, continue to monitor closely 7. Rhabdomyolysis. Acute, remains significantly elevated, increased IVF to NS 150/hr, repeat CPK tomorrow 8. Opiate overdose. Patient admits to ingestion of fentanyl-derivative he obtained online, denies co-ingestants, but does have physical exam findings consistent with huffing - patient endorses depression, denies SI, on M1 hold - d/w TLC, eval today to gauge whether inpt page hospital health appropriate - if deemed that he is not threat to self, will DC M1 hold, and pursue medical inpt rehab, transfer to medical unit while awaiting eval and receiving therapy 9. Acute basal ganglia CVA. Located in basal ganglia, suspect this is watershed - MRI w/ infarct and corresponding R hand hemiparesis/paresthesia - appreciate neuro consult - cont ASA 81, hold on statin given rhabdo - counseled patient and family that inpatient rehab consult placed, he would be a good candidate per COMPUTER GRAPHIC DESIGNER/OT/PT 10. Cardiomyopathy. Suspect non-ischemic, suspect 2/2 stress of above, EF recovered on Echo 11. Chronic benzodiazepine dependency and acute benzo withdraw. Patient elaborating on his ativan use today, reports he takes 2 tabs daily, has stock- piled a supply outside of his previous 12/[address] Rob for anxiety, and has demonstrated some symptoms of withdraw (sweaty, HTN, anxious, uncomfortable, tremulous w/ asterixes) - given seizure risk if discontinued, will start scheduled low dose ativan HS 0.5mg and gauge response, to be uptitrated to 1mg HS if needed, then weaned over several weeks Diet. Regular Prophylaxis. High risk patient, lovenox 40 Code. Full at present Disposition. Anticipated discharge uncertain this time, TLC eval today, then INPT rehab eval if M1 hold lifted Subjective: counseled patient and mother regarding sequencing of evaluations today, need for ongoing therapy Objective: Vital Signs Temp Pulse Resp BP Pulse Ox 36.6 C 67 19 121/55 H 95 02/12/17 08:00 02/12/17 08:00 02/12/17 08:00 02/12/17 08:00 02/12/17 08:00 Laboratory Results 02/12/17 05:00 02/12/17 05:00 02/11/17 02/12/17 02/13/17 05:59 05:59 05:59 Intake Total 3326 4027 600 Output Total 3050 1550 Balance 276 2477 600 PT 16.1 SEC (12.0-15.0) H 02/09/17 15:33 INR 1.29 (0.83-1.16) H 02/09/17 15:33 - Time Spent With Patient Time Spent with Patient: greater than 35 minutes Time Spent with Patient: Greater than 35 minutes spent on this patients care, greater than 50% of time spent counseling, educating, and coordinating care regarding the above mentioned plan. - Physical Exam Constitutional: no apparent distress, not in pain, obese, No uncomfortable Eyes: anicteric sclera, EOMI, other (dilated pupils) Ears, Nose, Mouth, Throat: moist mucous membranes Cardiovascular: regular rate and rhythym, no murmur, rub, or gallop, No edema Respiratory: no respiratory distress, no rales or rhonchi, clear to auscultation Gastrointestinal: normoactive bowel sounds, soft, non-tender abdomen, no palpable masses, No distension Skin: other (acne, bandaged R ankle, left knee) Neurologic: AAOx3, weakness (R hand finger extension), asterixes (and tremulous) , No sensation intact bilaterally (paresthesias R hand palmar aspect) Psychiatric: anxious, flat affect, other (more open and communicative today), No agitated ICD10 Worksheet Patient Problems: Problems Problem Status Onset Stroke Acute Concussion Acute Altered mental status Acute Acute renal failure Acute Hyperkalemia Acute Elevated troponin Acute Congestive heart failure Acute Rhabdomyolysis Acute
[2017-02-12] MEDS: LORazepam 0.5 MG TAB PO SCH ×2 (23:41→23:49)
[2017-02-13 05:08] LABS: % IMMATURE GRANULYOCYTES 0.5 % (0.0-1.1); ABSOLUTE IMMATURE GRANULOCYTES 0.05 10^3/uL (0.00-0.10); ADD DIFF? NO; ADD MORPH? NO; ADD SCAN? NO; ATYPICAL LYMPHOCYTE FLAG 10 (0-99); FRAGMENT RBC FLAG 20 (0-99); HEMATOCRIT 39.6 % (40.0-51.0); HEMOGLOBIN 13.9 g/dL (13.7-17.5); LEFT SHIFT FLG 0 (0-99); LIPEMIA HEMOLYSIS FLAG 90 (0-99); MEAN CELL HEMOGLOBIN 30.2 pg (27.9-34.1); MEAN CELL HEMOGLOBIN CONCENTR. 35.1 g/dL (32.4-36.7); MEAN CELL VOLUME 86.1 fL (81.5-99.8); MEAN PLATELET VOLUME 8.9 fL (8.7-11.7); PLATELET CLUMPS FLAG 0 (0-99); PLATELET COUNT 329 10^3/uL (150-400); RED CELL DISTRIBUTION WIDTH 12.2 % (11.5-15.2)
[2017-02-13 05:21] LABS: ALANINE AMINOTRANSFERASE 541 IU/L (21-72); ALBUMIN 3.6 g/dL (3.5-5.0); ALKALINE PHOSPHATASE 59 IU/L (38-126); ANION GAP 12 mEq/L (8-16); ASPARTATE AMINOTRANSFERASE 256 IU/L (17-59); BILIRUBIN,TOTAL 0.9 mg/dL (0.1-1.4); CALCIUM 9.7 mg/dL (8.5-10.4); CARBON DIOXIDE 21 mEq/l (22-31); CHLORIDE 105 mEq/L (97-110); CREATININE 0.8 mg/dL (0.7-1.3); GLOMERULAR FILTRATION RATE > 60; GLUCOSE 94 mg/dL (70-100); MAGNESIUM 1.9 mg/dL (1.6-2.3); POTASSIUM 3.9 mEq/L (3.5-5.2); SODIUM 138 mEq/L (134-144); TOTAL PROTEIN 6.7 g/dL (6.3-8.2)
[2017-02-13 06:09] LABS: CK-MB INTERPRETATION NEGATIVE (NEGATIVE); CREATINE KINASE-MB FRACTION 2.93 ng/mL (0.00-3.19)
[2017-02-13] MEDS: PARoxetine HCL 20 MG TAB PO SCH (09:51)
[2017-02-13] MEDS: ASPIRIN EC 81 MG TAB PO SCH (09:51)
[2017-02-13] MEDS: ERTAPENEM 1 GM in NS 100 ML IV SCH (09:52)
[2017-02-13] MEDS: buPROPion XL 150 MG TAB PO SCH (09:52)
[2017-02-13] MEDS: LORazepam 0.5 MG TAB PO PRN ×2 (09:52→13:48)
[2017-02-13] MEDS: ARIPiprazole 2 MG TAB PO SCH (10:05)
--- NOTE | 2017-02-13 17:26 | HOSPPROG ---
Hospitalist Progress Note Assessment/Plan: * Opiate overdose -no suicidal - off M1 hold * Acute CVA - basal ganglia - watershed -ASA, consider statin when CPK normalized * Non-STEMI * ARF * Aspiration PNA -IV Invanz - DC soon * Rhabdo * Benzo withdrawal -patient denies opiate withdrawal - states problem is chronic benzos being held -increase ativan * Cardiomyopathy - EF recovered Subjective: tremulous, shaking from benzo withdrawal Objective: Vital Signs Temp Pulse Resp BP Pulse Ox 36.8 C 90 20 159/89 H 96 02/13/17 15:37 02/13/17 15:37 02/13/17 15:37 02/13/17 15:37 02/13/17 15:37 Laboratory Results 02/13/17 04:57 02/13/17 04:57 02/12/17 02/13/17 02/14/17 05:59 05:59 05:59 Intake Total 4027 3520 1150 Output Total 1550 Balance 2477 3520 1150 PT 16.1 SEC (12.0-15.0) H 02/09/17 15:33 INR 1.29 (0.83-1.16) H 02/09/17 15:33 - Physical Exam Constitutional: no apparent distress, appears nourished, not in pain Cardiovascular: regular rate and rhythym, no murmur, rub, or gallop Respiratory: no respiratory distress, no rales or rhonchi, clear to auscultation Gastrointestinal: normoactive bowel sounds, soft, non-tender abdomen, no palpable masses Skin: no rashes or abrasions, no fluctuance, no induration Neurologic: AAOx3, sensation intact bilaterally Psychiatric: interacting appropriately, not anxious, not encephalopathic, thought process linear ICD10 Worksheet Patient Problems: Problems Problem Status Onset Acute renal failure Acute Altered mental status Acute Congestive heart failure Acute Elevated troponin Acute Hyperkalemia Acute Rhabdomyolysis Acute Stroke Acute Concussion Acute
[2017-02-14 04:57] LABS: % IMMATURE GRANULYOCYTES 0.5 % (0.0-1.1); ABSOLUTE IMMATURE GRANULOCYTES 0.06 10^3/uL (0.00-0.10); ADD DIFF? NO; ADD MORPH? NO; ADD SCAN? NO; ATYPICAL LYMPHOCYTE FLAG 20 (0-99); FRAGMENT RBC FLAG 0 (0-99); HEMATOCRIT 40.2 % (40.0-51.0); LEFT SHIFT FLG 0 (0-99); LIPEMIA HEMOLYSIS FLAG 90 (0-99); MEAN CELL HEMOGLOBIN 30.1 pg (27.9-34.1); MEAN CELL HEMOGLOBIN CONCENTR. 34.8 g/dL (32.4-36.7); MEAN CELL VOLUME 86.5 fL (81.5-99.8); MEAN PLATELET VOLUME 8.7 fL (8.7-11.7); PLATELET CLUMPS FLAG 10 (0-99); PLATELET COUNT 306 10^3/uL (150-400); RED BLOOD CELL COUNT 4.65 10^6/uL (4.40-6.38); RED CELL DISTRIBUTION WIDTH 12.5 % (11.5-15.2)
[2017-02-14 05:14] LABS: ALANINE AMINOTRANSFERASE 432 IU/L (21-72); ALBUMIN 4.2 g/dL (3.5-5.0); ALKALINE PHOSPHATASE 57 IU/L (38-126); ANION GAP 15 mEq/L (8-16); ASPARTATE AMINOTRANSFERASE 162 IU/L (17-59); BILIRUBIN,TOTAL 0.9 mg/dL (0.1-1.4); CALCIUM 9.7 mg/dL (8.5-10.4); CARBON DIOXIDE 20 mEq/l (22-31); CHLORIDE 104 mEq/L (97-110); CREATININE 0.8 mg/dL (0.7-1.3); GLOMERULAR FILTRATION RATE > 60; GLUCOSE 111 mg/dL (70-100); POTASSIUM 4.1 mEq/L (3.5-5.2); SODIUM 139 mEq/L (134-144); TOTAL PROTEIN 7.1 g/dL (6.3-8.2)
[2017-02-14 05:43] LABS: CK-MB INTERPRETATION NEGATIVE (NEGATIVE); CREATINE KINASE-MB FRACTION 1.34 ng/mL (0.00-3.19)
[2017-02-14] MEDS: PARoxetine HCL 20 MG TAB PO SCH (09:05)
[2017-02-14] MEDS: buPROPion XL 150 MG TAB PO SCH (09:05)
[2017-02-14] MEDS: ASPIRIN EC 81 MG TAB PO SCH (09:06)
[2017-02-14] MEDS: ARIPiprazole 2 MG TAB PO SCH (09:07)
[2017-02-14] MEDS: ERTAPENEM 1 GM in NS 100 ML IV SCH (09:07)
[2017-02-14] MEDS: LORazepam 0.5 MG TAB PO PRN (14:55)
--- NOTE | 2017-02-14 15:26 | HOSPPROG ---
Hospitalist Progress Note Assessment/Plan: 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 -ASA, consider statin when CPK normalized -needs rehab * Cardiomyopathy - transient due to cardiac stunning from toxin/acidosis -EF improved 35% --> 50% -troponin bump (peak 2.3) - suspect strain -per cards no further cardiac ischemic work-up needed * ARF - resolved * Aspiration PNA -IV Invanz - day #5 - okay to stop * Rhabdo - resolving * Increased LFT - due to shock liver -improving - recheck as outpatient to ensure normalization -viral hepatitis panel negative * Benzo withdrawal -patient denies opiate withdrawal - states problem is chronic benzos being held -low dose ativan BID as needed Subjective: No complaints. Doing better with reintroduction of low dose ativan Objective: Vital Signs Temp Pulse Resp BP Pulse Ox 37.6 C 85 12 142/86 H 96 02/14/17 12:00 02/14/17 12:00 02/14/17 12:00 02/14/17 12:00 02/14/17 12:00 Laboratory Results 02/14/17 04:43 02/14/17 04:43 02/13/17 02/14/17 02/15/17 05:59 05:59 05:59 Intake Total 3520 1886 Balance 3520 1886 PT 16.1 SEC (12.0-15.0) H 02/09/17 15:33 INR 1.29 (0.83-1.16) H 02/09/17 15:33 - Physical Exam Constitutional: no apparent distress, appears nourished, not in pain Cardiovascular: regular rate and rhythym, no murmur, rub, or gallop Respiratory: no respiratory distress, no rales or rhonchi, clear to auscultation Gastrointestinal: normoactive bowel sounds, soft, non-tender abdomen, no palpable masses Skin: no rashes or abrasions, no fluctuance, no induration Neurologic: AAOx3, sensation intact bilaterally Psychiatric: interacting appropriately, not anxious, not encephalopathic, thought process linear ICD10 Worksheet Patient Problems: Problems Problem Status Onset Acute renal failure Acute Altered mental status Acute Congestive heart failure Acute Elevated troponin Acute Hyperkalemia Acute Rhabdomyolysis Acute Stroke Acute Concussion Acute
--- NOTE | 2017-02-14 19:08 | WOCRNPDOC ---
WOCRN Advanced Assessment Note - Skin Integrity Problem, Advanced Assess Right Posterior Ankle Dressing Type: Thee, Mepilex Transfer Dressing Description: Clean/Dry, Intact Exudate Amount: None Wound Bed Constitution: Smooth Tissue, De-roofed Serous Blister (with partial reminants of roof ) Wound Edges: Epithelizing Site Measurement - Head-to-Toe Length X Width X Depth (cm): 7x6x0.1 Skin Integrity Problem Comment: Non viable skin lying over wound bed was trimmed with scissors after cleaning with ns and gauze. Wound gel applied to wound bed and covered with Allevyn Life. Education with mother about dressing changes. no sign of infection. No concerns. Wound care will sign off. Left Lateral Knee Dressing Type: Thee, Mepilex Transfer Dressing Description: Clean/Dry, Intact Exudate Amount: None Integumentary Issue Intervention: Dressing Changed Wound Bed Constitution: De-roofed Serous Blister Wound Edges: Epithelizing Site Measurement - Head-to-Toe Length X Width X Depth (cm): 5.2x6.5x0.1 Skin Integrity Problem Comment: Non viable skin lying over wound bed was trimmed with scissors after cleaning with ns and gauze. Wound gel applied to wound bed and covered with Allevyn Life. Education with mother about dressing changes. no sign of infection. No concerns. Wound care will sign off.
[2017-02-15] MEDS: ASPIRIN EC 81 MG TAB PO SCH (10:18)
[2017-02-15] MEDS: buPROPion XL 150 MG TAB PO SCH (10:18)
[2017-02-15] MEDS: PARoxetine HCL 20 MG TAB PO SCH (10:19)
[2017-02-15] MEDS: ARIPiprazole 2 MG TAB PO SCH (10:19)
[2017-02-15 11:45] LABS: 7-NH-CLONAZEPAM-BY GC/MS Negative; 7-NH-FLUNITRAZEPAM-BY GC/MS Negative ng/mL (Cutoff: 50); ALPHA OH-ALPRAZOLAM-BY GC/MS Negative; ALPHA OH-TRIAZOLAM-BY GC/MS Negative; CARBOXY-THC INTERPRETATION Positive.; CARBOXY-THC- by GC MS 50 ng/mL; INTERPRETATION Negative.; LORAZEPAM-BY GC/MS Negative; NORDIAZEPAM-BY GC/MS Negative; OH-ETHYL-FLURAZEPAM-BY GC/MS Negative; OXAZEPAM-BY GC/MS Negative; TEMAZEPAM-BY GC/MS Negative
[2017-02-15] MEDS: LORazepam 0.5 MG TAB PO PRN ×2 (13:05→15:58)
--- NOTE | 2017-02-15 16:00 | ASMTCMCOM ---
CM Note CM Note Notes: Pt. having [facility] treatment today in room. Rosalia called Grace at Inpatient Rehab to coordinate care. Pt. now ineligible for Inpatient Rehab due to his rapid physical improvements. SWer met w/ Pt. alone in his room to discuss possible drug treatment options. Pt. open to conversation, but did not engage very much in process. Gave Pt. referrals for [facility], [facility], [facility] and a long list of other addictions resources. Pt. discussed his high anxiety and depression levels. Parents waiting outside were then invited in with Pt's consent. Discussed treatment options and referrals given to Pt. Pt. feels that he is still withdrawing from substances and feels d/c today would be too early. Parents agreed. Pt. gave SWer explicit verbal consent to speak w/ parents about his care if he was not present. Hospitalist will keep Pt. one or two days more for stabalization as well as for parents to find inpatient or residential treatment option. Note: Marleny Arturo in financial counseling states father applying for [employer] insurance benefits at this time and Pt. probably will not have access to treatment directly d/c'ing from hospital. Prepare for independent d/c to home should benefits not be available yet. Pt. states his older brother at home also has a serious substance abuse problem. Acknowledges the difficulty in having substances around and desire to keep boundaries with his brother in same living environment. Date Signed: 02/15/2017 03:59 PM Electronically Signed By:Chata Baugh
--- NOTE | 2017-02-15 17:59 | HOSPPROG ---
Hospitalist Progress Note Assessment/Plan: 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 -ASA, consider statin when CPK normalized -PT/OT cleared for home -ST continues to follow for ongoing cognitive issues * Cardiomyopathy - transient due to cardiac stunning from toxin/acidosis -EF improved 35% --> 50% -troponin bump (peak 2.3) - suspect strain -per cards no further cardiac ischemic work-up needed * ARF - resolved * Aspiration PNA -IV Invanz - s/p day #5 * Rhabdo - resolving * Increased LFT - due to shock liver -improving - recheck as outpatient to ensure normalization -viral hepatitis panel negative * Obesity - BMI 33 * Benzo withdrawal - per parents, chronic benzo use is massive -narcotic abuse is just sporadic - not his drug of choice, not opiate dependent -prn Ativan for withdrawal with intent to taper off -parents seeking inpatient substance abuse program * Anxiety/depression - follows with psychiatry as outpatient -hears voices - ? withdrawal vs. psychosis Subjective: Still with severe withdrawal, tremor, diaphoresis Objective: Vital Signs Temp Pulse Resp BP Pulse Ox 37.1 C 90 14 140/82 H 96 02/15/17 16:00 02/15/17 16:00 02/15/17 16:00 02/15/17 16:00 02/15/17 16:00 Microbiology 02/09/17 18:10 Blood Culture - Final Blood 02/09/17 18:20 Blood Culture - Final Blood Laboratory Results 02/14/17 04:43 02/14/17 04:43 02/14/17 02/15/17 02/16/17 05:59 05:59 05:59 Intake Total 2803 034 4975 Balance 0664 060 3637 PT 16.1 SEC (12.0-15.0) H 02/09/17 15:33 INR 1.29 (0.83-1.16) H 02/09/17 15:33 - Physical Exam Constitutional: no apparent distress, appears nourished, not in pain Cardiovascular: regular rate and rhythym, no murmur, rub, or gallop Respiratory: no respiratory distress, no rales or rhonchi, clear to auscultation Gastrointestinal: normoactive bowel sounds, soft, non-tender abdomen, no palpable masses Skin: no rashes or abrasions, no fluctuance, no induration Neurologic: AAOx3, sensation intact bilaterally Psychiatric: interacting appropriately, not anxious, not encephalopathic, thought process linear ICD10 Worksheet Patient Problems: Problems Problem Status Onset Acute renal failure Acute Altered mental status Acute Congestive heart failure Acute Elevated troponin Acute Hyperkalemia Acute Rhabdomyolysis Acute Stroke Acute Concussion Acute
[2017-02-15] MEDS: ZOLPIDEM TARTRATE 5 MG TAB PO PRN ×2 (19:46→21:45)
[2017-02-16 05:29] LABS: % IMMATURE GRANULYOCYTES 0.5 % (0.0-1.1); ABSOLUTE IMMATURE GRANULOCYTES 0.06 10^3/uL (0.00-0.10); ADD DIFF? NO; ADD MORPH? NO; ADD SCAN? NO; ATYPICAL LYMPHOCYTE FLAG 20 (0-99); FRAGMENT RBC FLAG 0 (0-99); HEMATOCRIT 43.9 % (40.0-51.0); HEMOGLOBIN 14.9 g/dL (13.7-17.5); LEFT SHIFT FLG 0 (0-99); LIPEMIA HEMOLYSIS FLAG 90 (0-99); MEAN CELL HEMOGLOBIN 29.8 pg (27.9-34.1); MEAN CELL HEMOGLOBIN CONCENTR. 33.9 g/dL (32.4-36.7); MEAN CELL VOLUME 87.8 fL (81.5-99.8); PLATELET CLUMPS FLAG 0 (0-99); PLATELET COUNT 358 10^3/uL (150-400); RED CELL DISTRIBUTION WIDTH 12.7 % (11.5-15.2)
[2017-02-16 05:36] LABS: ALANINE AMINOTRANSFERASE 256 IU/L (21-72); ALBUMIN 4.3 g/dL (3.5-5.0); ALKALINE PHOSPHATASE 58 IU/L (38-126); ANION GAP 15 mEq/L (8-16); ASPARTATE AMINOTRANSFERASE 59 IU/L (17-59); BILIRUBIN,TOTAL 0.9 mg/dL (0.1-1.4); BILIRUBIN-CONJUGATED 0.3 mg/dL (0.0-0.5); BILIRUBIN-UNCONJUGATED 0.6 mg/dL (0.0-1.1); CALCIUM 9.9 mg/dL (8.5-10.4); CARBON DIOXIDE 18 mEq/l (22-31); CHLORIDE 106 mEq/L (97-110); CREATININE 0.9 mg/dL (0.7-1.3); GLOMERULAR FILTRATION RATE > 60; GLUCOSE 91 mg/dL (70-100); POTASSIUM 4.7 mEq/L (3.5-5.2); SODIUM 139 mEq/L (134-144); TOTAL PROTEIN 7.5 g/dL (6.3-8.2)
[2017-02-16] MEDS: LORazepam 0.5 MG TAB PO PRN ×4 (06:05→19:10)
--- NOTE | 2017-02-16 08:52 | HOSPPROG ---
Hospitalist Progress Note Assessment/Plan: Patient is a 21-year-old male who presented the emergency room with unresponsiveness, unclear when his symptoms started. He was seen at the [facility]. Hotel management came in and found him unarousable. EMS was calledand upon arrival to the scene they found an empty prescription bottles of Ativan. He received Narcan and became agitated. Today is my 1st encounter with the patient. Chart reviewed. 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 -ASA, consider statin when CPK normalized -PT/OT cleared for home -ST continues to follow for ongoing cognitive issues * Cardiomyopathy - transient due to cardiac stunning from toxin/acidosis -EF improved 35% --> 50% -troponin bump (peak 2.3) - suspect strain -per cards no further cardiac ischemic work-up needed * ARF - resolved * Aspiration PNA -IV Invanz - s/p treatment * Rhabdo - resolving * Increased LFT - due to shock liver -improving - recheck as outpatient to ensure normalization -viral hepatitis panel negative -resolved * Obesity - BMI 33 * Benzo withdrawal - per parents, chronic benzo use is massive -narcotic abuse is just sporadic - not his drug of choice, not opiate dependent -prn Ativan for withdrawal with intent to taper off -parents seeking inpatient substance abuse program/ will go there tomorrow * Anxiety/depression - patient to go IP for help he is agreeable for this/ to go to [facility] tomorrow * plan. Will DC tomorrow from the hospital straight to [facility]. Patient has significant anxiety and needs treatment for this. He is agreeable to going to [facility]. Subjective: brain has no complaints Objective: Vital Signs Temp Pulse Resp BP Pulse Ox 37.2 C 93 17 143/92 H 94 02/16/17 04:00 02/16/17 04:00 02/16/17 04:00 02/16/17 04:00 02/16/17 04:00 Microbiology 02/09/17 18:10 Blood Culture - Final Blood 02/09/17 18:20 Blood Culture - Final Blood Laboratory Results 02/16/17 04:55 02/16/17 04:55 02/15/17 02/16/17 02/17/17 05:59 05:59 05:59 Intake Total 845 2690 Balance 845 2690 PT 16.1 SEC (12.0-15.0) H 02/09/17 15:33 INR 1.29 (0.83-1.16) H 02/09/17 15:33 - Physical Exam Constitutional: no apparent distress, not in pain, obese Eyes: PERRL Ears, Nose, Mouth, Throat: hearing normal Cardiovascular: regular rate and rhythym Respiratory: no rales or rhonchi Gastrointestinal: normoactive bowel sounds Skin: warm Musculoskeletal: full muscle strength Neurologic: AAOx3, sensation intact bilaterally, No facial droop Psychiatric: interacting appropriately, flat affect ICD10 Worksheet Patient Problems: Problems Problem Status Onset Acute renal failure Acute Altered mental status Acute Congestive heart failure Acute Elevated troponin Acute Hyperkalemia Acute Rhabdomyolysis Acute Stroke Acute Concussion Acute
[2017-02-16] MEDS: ASPIRIN EC 81 MG TAB PO SCH (09:22)
[2017-02-16] MEDS: buPROPion XL 150 MG TAB PO SCH (09:22)
[2017-02-16] MEDS: ARIPiprazole 2 MG TAB PO SCH (09:22)
[2017-02-16] MEDS: PARoxetine HCL 20 MG TAB PO SCH (09:22)
--- NOTE | 2017-02-16 12:40 | ASMTCMCOM ---
CM Note CM Note Notes: Today hospitalist stated Pt. still withdrawing and not ready for d/c. Hopefully tomorrow. Parents plan to help Pt. admit to [facility] inpatient drug treatment program in [place] directly from [facility] (stilll technically an independent d/c). Rosalia assisted family in faxing [employer] documents and also completing medical records release for [facility] (see chart). CM to follow for d/c POC. Date Signed: 02/16/2017 12:39 PM Electronically Signed By:Chata Baugh
[2017-02-17 05:25] LABS: % IMMATURE GRANULYOCYTES 0.6 % (0.0-1.1); ABSOLUTE IMMATURE GRANULOCYTES 0.07 10^3/uL (0.00-0.10); ADD DIFF? NO; ADD MORPH? NO; ADD SCAN? NO; ATYPICAL LYMPHOCYTE FLAG 10 (0-99); FRAGMENT RBC FLAG 0 (0-99); HEMATOCRIT 43.3 % (40.0-51.0); HEMOGLOBIN 14.7 g/dL (13.7-17.5); LEFT SHIFT FLG 0 (0-99); LIPEMIA HEMOLYSIS FLAG 90 (0-99); MEAN CELL HEMOGLOBIN 29.8 pg (27.9-34.1); MEAN CELL HEMOGLOBIN CONCENTR. 33.9 g/dL (32.4-36.7); MEAN CELL VOLUME 87.8 fL (81.5-99.8); MEAN PLATELET VOLUME 8.7 fL (8.7-11.7); PLATELET CLUMPS FLAG 0 (0-99); PLATELET COUNT 384 10^3/uL (150-400); RED BLOOD CELL COUNT 4.93 10^6/uL (4.40-6.38); RED CELL DISTRIBUTION WIDTH 12.5 % (11.5-15.2)
[2017-02-17] MEDS: LORazepam 0.5 MG TAB PO PRN ×5 (05:37→22:53)
[2017-02-17] MEDS: buPROPion XL 150 MG TAB PO SCH (07:31)
[2017-02-17] MEDS: ASPIRIN EC 81 MG TAB PO SCH (07:31)
[2017-02-17] MEDS: PARoxetine HCL 20 MG TAB PO SCH (07:32)
[2017-02-17] MEDS: ARIPiprazole 2 MG TAB PO SCH (07:32)
--- NOTE | 2017-02-17 08:41 | HOSPPROG ---
Hospitalist Progress Note Assessment/Plan: Patient is a 21-year-old male who presented the emergency room with unresponsiveness, unclear when his symptoms started. He was seen at the [facility]. Hotel management came in and found him unarousable. EMS was calledand upon arrival to the scene they found an empty prescription bottles of Ativan. He received Narcan and became agitated. 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 -ASA, consider statin when CPK normalized -PT/OT cleared for home -ST continues to follow for ongoing cognitive issues * Cardiomyopathy - transient due to cardiac stunning from toxin/acidosis -EF improved 35% --> 50% -troponin bump (peak 2.3) - suspect strain -per cards no further cardiac ischemic work-up needed * ARF - resolved * Aspiration PNA -IV Invanz - s/p treatment * Rhabdo - resolving * Increased LFT - due to shock liver -improving - recheck as outpatient to ensure normalization -viral hepatitis panel negative -resolved * Obesity - BMI 33 * Benzo withdrawal - per parents, chronic benzo use is massive -narcotic abuse is just sporadic - not his drug of choice, not opiate dependent -prn Ativan for withdrawal with intent to taper off * Anxiety/depression - patient to go IP for help he is agreeable for this/ to go to [facility] * plan. DC today Subjective: Hi has no complaints. Is willing to go get treatment for his anxiety. Objective: Vital Signs Temp Pulse Resp BP Pulse Ox 36.5 C 91 16 153/85 H 96 02/17/17 08:00 02/17/17 08:00 02/17/17 08:00 02/17/17 08:00 02/17/17 08:00 Laboratory Results 02/17/17 04:49 02/16/17 04:55 02/16/17 02/17/17 02/18/17 05:59 05:59 05:59 Intake Total 2690 1770 Balance 2690 1770 PT 16.1 SEC (12.0-15.0) H 02/09/17 15:33 INR 1.29 (0.83-1.16) H 02/09/17 15:33 - Physical Exam Constitutional: not in pain, obese Eyes: PERRL Ears, Nose, Mouth, Throat: hearing normal Respiratory: no respiratory distress Skin: warm Musculoskeletal: full muscle strength Neurologic: AAOx3 Psychiatric: interacting appropriately, anxious (Slightly) ICD10 Worksheet Patient Problems: Problems Problem Status Onset Acute renal failure Acute Altered mental status Acute Congestive heart failure Acute Elevated troponin Acute Hyperkalemia Acute Rhabdomyolysis Acute Stroke Acute Concussion Acute
[2017-02-17 10:34] LABS: CK-MB INTERPRETATION NEGATIVE (NEGATIVE); CREATINE KINASE-MB FRACTION 1.42 ng/mL (0.00-3.19)
--- NOTE | 2017-02-17 11:50 | GDS ---
[f rep st] DISCHARGE SUMMARY DISCHARGE DIAGNOSES: 1. Opiate overdose. 2. Acute cerebrovascular accident, basal ganglia, watershed. 3. Cardiomyopathy. 4. Acute renal failure. 5. Aspiration pneumonia. 6. Rhabdomyolysis. 7. Elevated liver enzymes. 8. Obesity. 9. Benzodiazepine withdrawal. 10. Anxiety, depression. CONSULTATIONS DURING STAY: 1. Ryne Muse M.D. 2. Duane Syed M.D. 3. Pal Steven D.O. BRIEF HISTORY: The patient is a 21-year-old, young man, who has a history of depression. He was found in a local hotel and was unresponsive. EMS was activated. He was transferred to [facility] and was noted to be quite lethargic but was not needing intubation. He was given Narcan, which created agitation. His drugs screen showed no benzodiazepines or narcotics, but THC. He admits to smoking cannabis. He had a head CT, which showed a hypodensity in the right basal ganglia, suspicious for possible early ischemia that was nonspecific. Subsequently, he had a brain MRI performed, which showed a 14 mm infarct in the right basal ganglia near the internal capsule and a smaller one on the left. It also noted he had a couple tiny foci of abnormal signal intensity in the deep hemispheric white matter of both frontal lobes, which was nonspecific. He had an echocardiogram performed because of the stroke. This showed an EF of 50% to 55%. There was subtle apical hypokinesis. He was seen and evaluated by Cardiology, who noted that he had stress-induced cardiomyopathy secondary to severe respiratory depression, near cardiovascular collapse, hypotension. The patient has improved throughout his stay. He suffers from significant anxiety and depression. He will go to [facility] and follow up with his primary care provider. HOSPITAL COURSE PER PROBLEM: 1. Opiate overdose. He was initially placed on an M1 hold. It was noted that he was not suicidal. 2. Acute CVA at the basal ganglia, watershed. He is on aspirin therapy. His CPK is starting to normalize. He will need statin therapy down the road. He has underlying cognitive issues. 3. Cardiomyopathy. This is transient due to cardiac stunning from toxins and acidosis. His EF improved from 35% to greater than 50%. He had a troponin bump that peaked at 2.3, most likely secondary to strain. Per Cardiology, he needs no further workup. 4. Acute renal failure, resolved. 5. Aspiration pneumonia, status post treatment of Invanz. 6. Rhabdomyolysis. CPK has trended down nicely. 7. Increased liver enzymes. His viral hepatitis panel is negative. This has been improving. 8. Obesity. He has a BMI of 33. 9. Benzodiazepine withdrawal. His benzodiazepine use is quite significant. He does not use narcotics. He will get a dose of 2 Ativan to take with him on transport to [facility]. 10. Anxiety and depression. He is agreeable to go to [facility] today. DISCHARGE CONDITION: Good. Stable. PHYSICAL EXAMINATION: Blood pressure is 135/83, heart rate is 90, respiratory rate is 18, O2 sats on room air are 95%, temperature is 37.1 Celsius. MEDICATIONS AT DISCHARGE: Please see the EMR. DISCHARGE INSTRUCTIONS: 1. Wound Care has written out a note for him about blisters on his right ankle and left knee. 2. To continue aspirin daily. 3. Once he is improved, he should get started on statin therapy. Greater than 30 minutes discharging and coordinating his care. /[id number]/MODL ADDENDUM: Patient was not discharged. [facility] was not able to take him. They were concerned about his health history. Parents were concerned about his dependency on benzodiazepines and risk of use and abuse. I have spoken with psychiatry to see. They will evaluate his home medications for his anxiety and consider admission to Behavioral Health unit for stabilization. KAREEN
--- NOTE | 2017-02-17 17:23 | HOSPPROG ---
Hospitalist Progress Note Assessment/Plan: Patient is a 21-year-old male who presented the emergency room with unresponsiveness, unclear when his symptoms started. He was seen at the [facility]. Hotel management came in and found him unarousable. EMS was calledand upon arrival to the scene they found an empty prescription bottles of Ativan. He received Narcan and became agitated. 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 -ASA, consider statin when CPK normalized -PT/OT cleared for home -ST continues to follow for ongoing cognitive issues * Cardiomyopathy - transient due to cardiac stunning from toxin/acidosis -EF improved 35% --> 50% -troponin bump (peak 2.3) - suspect strain -per cards no further cardiac ischemic work-up needed * ARF - resolved * Aspiration PNA -IV Invanz - s/p treatment * Rhabdo - resolving * Increased LFT - due to shock liver -improving - recheck as outpatient to ensure normalization -viral hepatitis panel negative -resolved * Obesity - BMI 33 * Benzo withdrawal - per parents, chronic benzo use is massive -narcotic abuse is just sporadic - not his drug of choice, not opiate dependent -prn Ativan for withdrawal with intent to taper off * Anxiety/depression - patient to go IP for help he is agreeable for this/ to go to [facility] * plan. the plan was to go to [facility]. [facility] did not feel comfortable taking him with all his medical needs even though he is safe to be discharged home. Patient's parents are very concerned that he may overdose on Ativan again. Patient has continued withdrawal. He has severe anxiety with underlying depression. Have asked for a psych consult. Would like to evaluate his medications and considered behavior Health admission to help manage his medications. I think he is at high risk at benzodiazepine overuse. Appreciate Psychiatry seeing him Objective: Vital Signs Temp Pulse Resp BP Pulse Ox 37.2 C 114 H 20 165/92 H 94 02/17/17 15:48 02/17/17 15:48 02/17/17 15:48 02/17/17 15:48 02/17/17 15:48 Laboratory Results 02/17/17 04:49 02/16/17 04:55 02/16/17 02/17/17 02/18/17 05:59 05:59 05:59 Intake Total 2690 1770 Balance 2690 1770 PT 16.1 SEC (12.0-15.0) H 02/09/17 15:33 INR 1.29 (0.83-1.16) H 02/09/17 15:33 ICD10 Worksheet Patient Problems: Problems Problem Status Onset Acute renal failure Acute Altered mental status Acute Congestive heart failure Acute Elevated troponin Acute Hyperkalemia Acute Rhabdomyolysis Acute Stroke Acute Concussion Acute
[2017-02-18] MEDS: LORazepam 0.5 MG TAB PO PRN ×7 (03:02→23:30)
[2017-02-18] MEDS: buPROPion XL 150 MG TAB PO SCH (07:27)
[2017-02-18] MEDS: ASPIRIN EC 81 MG TAB PO SCH (07:28)
[2017-02-18] MEDS: ARIPiprazole 2 MG TAB PO SCH (07:28)
[2017-02-18] MEDS: PARoxetine HCL 20 MG TAB PO SCH (07:28)
[2017-02-18] MEDS: chlordiazePOXIDE 25 MG CAP PO PRN ×2 (10:07→19:26)
--- NOTE | 2017-02-18 14:43 | HOSPPROG ---
Hospitalist Progress Note Assessment/Plan: Patient is a 21-year-old male who presented the emergency room with unresponsiveness, unclear when his symptoms started. He was seen at the [facility]. Hotel management came in and found him unarousable. EMS was called and upon arrival to the scene they found an empty prescription bottles of Ativan. He received Narcan and became agitated. First encounter, chart reviewed. D/W CM. 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 -ASA, consider statin when CPK normalized -PT/OT cleared for home -ST cleared, rec possible out pt therapy * Cardiomyopathy - transient due to cardiac stunning from toxin/acidosis -EF improved 35% --> 50% -troponin bump (peak 2.3) - suspect strain -per cards no further cardiac ischemic work-up needed * ARF - resolved * Aspiration PNA -IV Invanz - s/p treatment * Rhabdo - resolving * Increased LFT - due to shock liver -improving - recheck as outpatient to ensure normalization -viral hepatitis panel negative -resolved * Obesity - BMI 33 * Benzo withdrawal - per parents, chronic benzo use is massive -narcotic abuse is just sporadic - not his drug of choice, not opiate dependent -prn Ativan for withdrawal with intent to taper off - add librium as pt still having significant withdrawl -tremor and hallucinations * Anxiety/depression - patient to go IP for help he is agreeable for this attempting to find placement * plan. the plan was to go to [facility]. [facility] did not feel comfortable taking him with all his medical needs even though he is safe to be discharged home. Patient's parents are very concerned that he may overdose on Ativan again. Patient has continued withdrawal. He has severe anxiety with underlying depression. Evaluated his medications, lots of medications and drug abuse. See SW note. I think he is at high risk at benzodiazepine overuse. Appreciate Psychiatry seeing him Await placement. Subjective: Minimal interaction. Pleasant. No specific complaints. Objective: Vital Signs Temp Pulse Resp BP Pulse Ox 36.7 C 87 18 131/88 H 92 02/18/17 08:00 02/18/17 08:00 02/18/17 08:00 02/18/17 08:00 02/18/17 08:00 Laboratory Results 02/17/17 04:49 02/16/17 04:55 02/17/17 02/18/17 02/19/17 05:59 05:59 05:59 Intake Total 1770 Balance 1770 PT 16.1 SEC (12.0-15.0) H 02/09/17 15:33 INR 1.29 (0.83-1.16) H 02/09/17 15:33 - Physical Exam Constitutional: appears nourished, not in pain, obese Eyes: PERRL, anicteric sclera, EOMI Ears, Nose, Mouth, Throat: moist mucous membranes, hearing normal, ears appear normal Cardiovascular: No JVD, No tachycardia, No edema Respiratory: no respiratory distress, no rales or rhonchi, reduced air movement Gastrointestinal: No tenderness, No ascites, No guarding Skin: warm, normal color, No erythema Musculoskeletal: normal joint ROM, no joint effusions, generalized weakness Psychiatric: not anxious, not encephalopathic, poor insight, poor judgement, poor memory ICD10 Worksheet Patient Problems: Problems Problem Status Onset Stroke Acute Concussion Acute Altered mental status Acute Acute renal failure Acute Hyperkalemia Acute Elevated troponin Acute Congestive heart failure Acute Rhabdomyolysis Acute
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
[2017-02-18 16:58] LABS: ALCOHOL - URINE NEGATIVE mg/dL (Cutoff: 10); BARBITURATES, URINE NEGATIVE; COCAINE URINE NEGATIVE; DRUG DETECTED See Comments; OPIATES URINE NEGATIVE; OXYCODONE, URINE NEGATIVE; PHENCYCLIDINE, URINE NEGATIVE ng/mL (Cutoff: 25); TETRAHYDROCANNIBINOL URINE Presumptive Positive ng/mL (Cutoff: 50)
[2017-02-18] MEDS: IBUPROFEN 600 MG TAB PO PRN (17:19)
[2017-02-19] MEDS: chlordiazePOXIDE 25 MG CAP PO PRN ×4 (00:39→17:55)
[2017-02-19] MEDS: LORazepam 0.5 MG TAB PO PRN ×6 (01:46→19:39)
[2017-02-19] MEDS: buPROPion XL 150 MG TAB PO SCH (08:31)
[2017-02-19] MEDS: PARoxetine HCL 20 MG TAB PO SCH (08:32)
[2017-02-19] MEDS: ASPIRIN EC 81 MG TAB PO SCH (08:32)
[2017-02-19] MEDS: ARIPiprazole 2 MG TAB PO SCH (08:32)
--- NOTE | 2017-02-19 12:20 | SOAPPROG ---
SOAP Progress Note Assessment/Plan: Assessment: 19yo s/p accidental OD on BZD and opiates, with hypoxic ischemic injury and other deficits which are improving/resolving. has severe BZD addiction/abuse x yrs, and also hx of anxiety/depr, awaiting placement for dual dx treatment. Plan: no clear indication for some of his meds, given he admits not being forthcoming with his mental health providers about any of his substance use issues and has been using BZDs heavily (ordering online), and THC, also occasional opiates. -will d/c abilify, and decr wellbutrin to 150mg for now. admitted none of his medications have been helpful for quite some time, but very likely b/c complicated by substance use. wellbutrin also has abuse potential on the streets , but could incr anxiety and contribute to insomnia, however dopamine effects could be helpful if having cognitive difficulties related to hypoxic/ischemic injury. -would cont paxil 20mg for now Objective: Vital Signs Temp Pulse Resp BP Pulse Ox 36.9 C 103 H 18 134/79 H 95 02/19/17 07:10 02/19/17 11:31 02/19/17 11:31 02/19/17 11:31 02/19/17 11:31 Laboratory Results 02/17/17 04:49 02/16/17 04:55 PT 16.1 SEC (12.0-15.0) H 02/09/17 15:33 INR 1.29 (0.83-1.16) H 02/09/17 15:33 - Pending Discharge Pending Discharge Within 24 Hours: No Pending Discharge Within 48 Hours: No ICD10 Worksheet Patient Problems: Problems Problem Status Onset Acute renal failure Acute Altered mental status Acute Congestive heart failure Acute Elevated troponin Acute Hyperkalemia Acute Rhabdomyolysis Acute Stroke Acute Concussion Acute
--- NOTE | 2017-02-19 13:21 | HOSPPROG ---
Hospitalist Progress Note Assessment/Plan: Patient is a 21-year-old male who presented the emergency room with unresponsiveness, unclear when his symptoms started. He was seen at the [facility]. Hotel management came in and found him unarousable. EMS was called and upon arrival to the scene they found an empty prescription bottles of Ativan. He received Narcan and became agitated. D/W CM. * Opiate overdose -not suicidal - off M1 hold Appreciate psych, Dr Quiñones * Acute CVA - basal ganglia - watershed -ASA, consider statin when CPK normalized -PT/OT cleared for home -ST cleared, rec possible out pt therapy * Cardiomyopathy - transient due to cardiac stunning from toxin/acidosis -EF improved 35% --> 50% -troponin bump (peak 2.3) - suspect strain -per cards no further cardiac ischemic work-up needed * ARF - resolved * Aspiration PNA -IV Invanz - s/p treatment * Rhabdo - resolving * Increased LFT - due to shock liver -improving - recheck as outpatient to ensure normalization -viral hepatitis panel negative -resolved * Obesity - BMI 33 * Benzo withdrawal - per parents, chronic benzo use is massive -narcotic abuse is just sporadic - not his drug of choice, not opiate dependent -prn Ativan for withdrawal with intent to taper off - add librium as pt still having significant withdrawl -tremor and hallucinations * Anxiety/depression - patient to go IP for help he is agreeable for this attempting to find placement * plan. the plan was to go to [facility]. [facility] did not feel comfortable taking him with all his medical needs even though he is safe to be discharged home. Patient's parents are very concerned that he may overdose on Ativan again. Patient has continued withdrawal. He has severe anxiety with underlying depression. Evaluated his medications, lots of medications and drug abuse. See SW note. I think he is at high risk at benzodiazepine overuse. Appreciate Psychiatry seeing him Await placement. Subjective: Feeling a bit better today. Not sleeping well. Intense dreams. Objective: Vital Signs Temp Pulse Resp BP Pulse Ox 36.9 C 103 H 18 134/79 H 95 02/19/17 07:10 02/19/17 11:31 02/19/17 11:31 02/19/17 11:31 02/19/17 11:31 Laboratory Results 02/17/17 04:49 02/16/17 04:55 PT 16.1 SEC (12.0-15.0) H 02/09/17 15:33 INR 1.29 (0.83-1.16) H 02/09/17 15:33 - Physical Exam Constitutional: appears nourished, obese Eyes: PERRL, anicteric sclera Ears, Nose, Mouth, Throat: moist mucous membranes, hearing normal Cardiovascular: No JVD, No edema Respiratory: no respiratory distress, reduced air movement Gastrointestinal: No tenderness, No ascites Skin: warm, normal color Musculoskeletal: no joint effusions, generalized weakness Neurologic: AAOx3 Psychiatric: thought process linear, anxious, poor judgement, poor memory ICD10 Worksheet Patient Problems: Problems Problem Status Onset Stroke Acute Concussion Acute Altered mental status Acute Acute renal failure Acute Hyperkalemia Acute Elevated troponin Acute Congestive heart failure Acute Rhabdomyolysis Acute
[2017-02-19] MEDS: IBUPROFEN 600 MG TAB PO PRN (14:11)
[2017-02-19] MEDS: ZOLPIDEM TARTRATE 5 MG TAB PO PRN (19:39)
[2017-02-20] MEDS: chlordiazePOXIDE 25 MG CAP PO PRN
[2017-02-20] MEDS: ZOLPIDEM TARTRATE 5 MG TAB PO PRN
[2017-02-20] MEDS: LORazepam 0.5 MG TAB PO PRN ×2 (04:10)
[2017-02-20] MEDS: buPROPion XL 150 MG TAB PO SCH (08:54)
[2017-02-20] MEDS: ASPIRIN EC 81 MG TAB PO SCH (08:55)
[2017-02-20] MEDS: chlordiazePOXIDE 25 MG CAP PO SCH ×2 (08:55→19:34)
[2017-02-20] MEDS: PARoxetine HCL 20 MG TAB PO SCH (08:55)
[2017-02-20] MEDS: IBUPROFEN 600 MG TAB PO PRN ×2 (08:59→17:06)
--- NOTE | 2017-02-20 17:05 | ASMTCMCOM ---
CM Note CM Note Notes: Pt was scheduled to discharge to [facility] has medical concerns and unable to accept patient today. CM faxed over updated notes and requested a call back on decision of accepting pt. CM spoke w/ Tali Jackson NP. Tali Jackson NP put in a psychiatric consult and discharge is cancelled for today. CM to follow. Date Signed: 02/17/2017 03:02 PM Electronically Signed By:Jessa Pappas
--- NOTE | 2017-02-20 17:08 | ASMTCMCOM ---
CM Note CM Note Notes: CM made referral to [facility]. behavioral therapy coordinator Nimo informed CM that there is a male bed available today. CM spoke w/ [facility] and as of this AM there are no beds available. CM refaxed referral to [facility]. Pt has been declined from [facility] because pt is currently in DTs. CM called [facility] and was informed that they cannot accept pt because he is in DTs as well. CM met w/ family to provide updates. CM to follow. Date Signed: 02/19/2017 12:21 PM Electronically Signed By:Jessa Pappsa
--- NOTE | 2017-02-20 17:08 | ASMTCMCOM ---
CM Note CM Note Notes: CM met w/ pt for dispo planning. CM spoke w/ Mom. Referral made at [facility] to their detox program. CM awaiting to hear back on acceptance. CM obtained list of substances pt has been using/history of use: Valium 90mg/daily for the past year Fentyal 2-3x total in last 6 months Cocaine half a gram/nightly 2 months ago Meth, a gram a week Heroin, last 6 months 3x LSD once last year Marijuana once a week Dusters/Huffing, daily for 1-2 months Date Signed: 02/19/2017 09:43 AM Electronically Signed By:Jessa Pappas
--- NOTE | 2017-02-20 17:32 | HOSPPROG ---
Hospitalist Progress Note Assessment/Plan: Assessment: 21-year-old male presents with acute encephalopathy in the setting of opiate overdose w/ resultant acute CVA, NSTEMI, RADHA Plan: 1. Acute encephalopathy. 2/2 opiate overdose, and likely exacerbated by metabolic acidosis, aspiration PNA, and acute CVA - improved, albeit somewhat fluctuating mental status in setting of benzo withdraw 2. Non ST-elevation myocardial infarction. Evidenced by troponin of 2.3, no active ischemic changes on EKG, echo w/ likely stress induced decline in EF 35- 45% w/ apical hypokinesis, EF recovered on repeat Echo, no cath indicated - no further medical mgmt indicated 3. Aspiration PNA. Leukocytosis, fever, CT chest w/ basilar infiltrates ( personally interpreted), PCT 2.1, s/p 5 days of invanz 4. Metabolic acidosis. Acute, improved 5. Acute kidney injury. Most likely secondary to prolonged down time, creatinine improved w/ IVF 6. Hyperkalemia. Secondary to acute kidney injury and reduced excretion, resolved 7. Rhabdomyolysis. Acute, remains significantly elevated, resolved 8. Opiate overdose. Unintentional, recreational use, remains high risk for relapse if discharged into his home setting 9. Acute basal ganglia CVA. Located in basal ganglia, suspect this is watershed , he has recovered well and is able to engage in mostly self-directed OT for his R hand now - cont ASA 81 and start low dose statin 10. Cardiomyopathy. Suspect non-ischemic, suspect 2/2 stress of above, EF recovered on Echo, resolved, no further care required 11. Chronic benzodiazepine dependency and acute benzo withdraw. Patient has physiologic dependency and will take weeks-months to wean off of benzos completely - trial scheduled librium 25mg bid and gauge effect - if he is persistently tremulous or having hallucinations, increase to 25mg tid , but would not recommend PRN dosing of ativan, as that will only prolong the length of his long-taper - would recommend reducing dosages by approx 20% every week to prevent seizure and empower optimal level of cog/physical functioning - the patient is having difficulty sleeping, attempt non benzo, non narcotic medications to assist, attempt melatonin 6 mg tonight, and if unsuccessful, then recommend antihistamine tomorrow night - he is high risk of abuse and not completing his taper safely if discharged independently to home 12. Mental health. Appreciate Dr. Quiñones' consultations - discontinued abilify, reduced wellbutrin, cont paxil - patient would benefit substantially from inpatient mental health stabilization - family asking whether he can establish care w/ Dr. Quiñones as outpatient Diet. Regular Prophylaxis. High risk patient, lovenox 40 Code. Full at present Disposition. Anticipated discharge uncertain this time, d/w case mgmt, we are attempting to locate appropriate lower level of care Of note, he is stable from a medical perspective and should be able to safely receive mental health care at an appropriate mental health/rehab facility w/o any acute medical care. Subjective: counseled patient and family extensively regarding the anticipated length benzodiazepine withdrawal, strategies which can be employed, as well as strategies to improve sleep regulation Objective: Vital Signs Temp Pulse Resp BP Pulse Ox 36.9 C 85 18 141/70 H 97 02/20/17 08:00 02/20/17 08:00 02/20/17 08:00 02/20/17 08:00 02/20/17 08:00 Laboratory Results 02/17/17 04:49 02/16/17 04:55 02/19/17 02/20/17 02/21/17 05:59 05:59 05:59 Intake Total 500 Balance 500 PT 16.1 SEC (12.0-15.0) H 02/09/17 15:33 INR 1.29 (0.83-1.16) H 02/09/17 15:33 - Time Spent With Patient Time Spent with Patient: greater than 35 minutes Time Spent with Patient: Greater than 35 minutes spent on this patients care, greater than 50% of time spent counseling, educating, and coordinating care regarding the above mentioned plan. - Physical Exam Constitutional: no apparent distress, not in pain, obese, No uncomfortable Skin: other (acne) Musculoskeletal: other (full ROM R ankle w/ minimal pain) Neurologic: AAOx3 Psychiatric: not anxious, flat affect, other (lethargic but intermittently engaging in conversation), No agitated ICD10 Worksheet Patient Problems: Problems Problem Status Onset Stroke Acute Concussion Acute Altered mental status Acute Acute renal failure Acute Hyperkalemia Acute Elevated troponin Acute Congestive heart failure Acute Rhabdomyolysis Acute
[2017-02-20] MEDS: MELATONIN 3 MG TAB PO SCH ×2 (18:36→21:32)
[2017-02-21 04:14] VITALS: O2SAT 96
[2017-02-21] MEDS: PARoxetine HCL 20 MG TAB PO SCH (08:34)
[2017-02-21] MEDS: buPROPion XL 150 MG TAB PO SCH (08:34)
[2017-02-21] MEDS: ASPIRIN EC 81 MG TAB PO SCH (08:35)
[2017-02-21] MEDS: chlordiazePOXIDE 25 MG CAP PO SCH (08:36)
--- NOTE | 2017-02-21 09:01 | HOSPPROG ---
Hospitalist Progress Note Assessment/Plan: Patient is a 21-year-old male who presented the emergency room with unresponsiveness, unclear when his symptoms started. He was seen at the [facility]. Hotel management came in and found him unarousable. EMS was called and upon arrival to the scene they found an empty prescription bottles of Ativan. He received Narcan and became agitated. 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 -ASA, consider statin when CPK normalized -PT/OT cleared for home -ST continues to follow for ongoing cognitive issues * Cardiomyopathy - transient due to cardiac stunning from toxin/acidosis -EF improved 35% --> 50% -troponin bump (peak 2.3) - suspect strain -per cards no further cardiac ischemic work-up needed * ARF - resolved * Aspiration PNA -IV Invanz - s/p treatment * Rhabdo - resolving * Increased LFT - due to shock liver -improving - recheck as outpatient to ensure normalization -viral hepatitis panel negative -resolved * Obesity - BMI 33 * Benzo withdrawal - per parents, chronic benzo use is massive -narcotic abuse is just sporadic - not his drug of choice, not opiate dependent - started on scheduled Librium * Anxiety/depression - patient to go IP for help appreciate Dr. Quiñones * plan. Message left for [facility] to see if they would consider re- evaluation admission there. Patient is completely medically stable to be discharged there. He has no residual affects of the stroke or any cardiac or lung issues. The main intent is to help him with his benzodiazepine withdrawal. I have also spoken to the patient and his father. His withdrawal symptoms are definitely more mild. I spoke with Dr. Rogers who will be his primary care provider who will also follow up with the patient. The father has arranged for possibly outpatient care for the patient's withdrawal treatment. Will aim to discharge him later today and see what will be available. Subjective: Hi says he feels better/would like the librium dose frequency increased. Objective: Vital Signs Temp Pulse Resp BP Pulse Ox 37.1 C 66 16 108/52 L 96 02/21/17 08:00 02/21/17 08:00 02/21/17 08:00 02/21/17 08:00 02/21/17 08:00 Laboratory Results 02/17/17 04:49 02/16/17 04:55 02/20/17 02/21/17 02/22/17 05:59 05:59 05:59 Intake Total 500 Balance 500 PT 16.1 SEC (12.0-15.0) H 02/09/17 15:33 INR 1.29 (0.83-1.16) H 02/09/17 15:33 - Physical Exam Constitutional: no apparent distress, appears nourished Eyes: PERRL Ears, Nose, Mouth, Throat: hearing normal Cardiovascular: No tachycardia Respiratory: no respiratory distress Gastrointestinal: normoactive bowel sounds Skin: warm Musculoskeletal: full muscle strength Neurologic: AAOx3 Psychiatric: interacting appropriately, not anxious ICD10 Worksheet Patient Problems: Problems Problem Status Onset Acute renal failure Acute Altered mental status Acute Congestive heart failure Acute Elevated troponin Acute Hyperkalemia Acute Rhabdomyolysis Acute Stroke Acute Concussion Acute
--- NOTE | 2017-02-21 11:54 | ASMTCMCOM ---
CM Note CM Note Notes: Spoke with patient and his father, Sujit. Sujit states he has made his first payment to [employer] but they haven't cashed the check yet. Encouraged father to call them and find out why, since having insurance is the only way to be admitted for substance rehab. Sujit states Dr. Torrez agreed to call [facility] about Hi and reassure them he is medically clear and not a risk to be in rehab at this time. Awaiting response from Dr. Torrez. Patient's father states it is ok with them if patient is d/c'ed today. He ideally would like patient to go directly into rehab from our facility but understands the insurance issue may hold this up and needs to be worked out first. Sujit states Dr. Jae Silva, a PCP is willing to take over Hi's care upon d/c. Patient's father states they intend to keep Hi in his home and their other son in the mother's home, so each son can focus on their rehab needs. Dr. Torrez did not have opportunity to talk to [facility] so Tali Regan called them to let them know patient was medically clear for rehab treatment. Patient encouraged to make appointment with Dr. Silva today and to stop by medical records and have his hospital records released to Dr. Silva. Patient does already have a psychiatrist. Discussed limiting patient's care to the psychiatrist and PCP for continuity of care and signing releases so the 2 physicians can coordinate medication prescriptions. Patient and his father agreed. Patient to be d/c'ed today. Date Signed: 02/21/2017 11:53 AM Electronically Signed By:Molly Drake
[2017-02-21 17:04] VITALS: BP 148/84; PULSE 91; RESP 14; TEMP 98.4
--- NOTE | 2017-02-21 17:35 | GDS ---
[f rep st] DISCHARGE SUMMARY NOTE: Please see Tali Regan NP's discharge summary on 02/17/2017. DISCHARGE DIAGNOSES: 1. Opiate overdose/benzodiazepines. 2. Acute cerebral vascular accident, basal ganglia, watershed. 3. Cardiomyopathy. 4. Acute renal failure. 5. Aspiration pneumonia. 6. Rhabdomyolysis. 7. Elevated liver enzymes. 8. Obesity. 9. Benzodiazepine withdrawal. 10. Anxiety and depression. CONSULTATIONS: 1. Dr. Ryne Muse. 2. Dr. Duane Syed. 3. Dr. Pal Steven. 4. Dr. Cherie Quiñones. BRIEF HISTORY: The patient is a 21-year-old male who has a history of depression. He was found in a local hotel, unresponsive. EMS was activated and he was ultimately transferred to [facility]. He was given Narcan, which created agitation. His drug screen showed no benzodiazepine o r narcotics but THC. He had a head CT that showed a hypodensity in the right basal ganglia suspiciou s for possible early ischemia that was nonspecific. An MRI was performed, which showed a 14 mm infar ct in the right basal ganglion near the internal capsule and a small one on the left. It also noted that he had a couple of tiny foci of abnormal signal intensity in the deep hemispheric white matter o f both frontal lobes, which is nonspecific. He also had an echocardiogram because of the stroke, thi s showed an EF of 50% to 55%, there was subtle apical hypokinesis. He was seen and evaluated by Card iology, who noted that he had a stress-induced cardiomyopathy secondary to severe respiratory depress ion, near cardiovascular collapse and hypotension. He improved throughout his stay. Initially, he w as to be discharged last week. The plan was for him to go to [facility] for followup care. They declined because they were concerned with his health issues, and at a higher altitude, this could aff ect him. HOSPITAL COURSE PER PROBLEM: Please see discharge summary done on 02/17/2017. CONDITION AT DISCHARGE: Stable. Blood pressure is 140/80, heart rate is 92, respiratory rate is 16, O2 sats on room air 96%, temperature is 36.6 Celsius. MEDICATIONS AT DISCHARGE: Please see the EMR. There have been multiple changes to his home medicati ons. DISCHARGE INSTRUCTIONS: 1. To stop the Abilify. 2. His Wellbutrin has been cut back from 300 mg to 150 mg daily. 3. He will be on Librium 25 mg twice daily for the next 3 days, and then daily for 4 days. 4. He has outpatient care and will be going to detox rehab 5 days a week. He will be supervised by his father and mother. 5. Further followup with Dr. Rogers. 6. Recommendation is for him to get on statin therapy, once he gets completely well. 7. Advised to the patient the seriousness of using benzodiazepines. Greater than 30 minutes discharging and coordinating his care. /[id number]/MODL
== END 2017-02-21 17:50 | disposition home or self-care (01) | DRG 917 ==
LOC: EDUNIT# → EEVIPCON 14:42 → F2N 16:39 → F3E 02-13 00:15
PROVIDERS: ADMIT Internal Medicine; ATTEND Internal Medicine
PROC: 3E03329 Introduction of Other Anti-infective into Peripheral Vein, Percutaneous Approach (ICD-10-PCS; principal; 2017-02-09)
PROC: 3E0337Z Introduction of Electrolytic and Water Balance Substance into Peripheral Vein, Percutaneous Approach (ICD-10-PCS; 2017-02-09)
PROC: HZ2ZZZZ Detoxification Services for Substance Abuse Treatment (ICD-10-PCS; 2017-02-09)
DX: T40.4X1A Poisoning by other synthetic narcotics, accidental (unintentional), initial encounter (principal); T40.2X1A Poisoning by other opioids, accidental (unintentional), initial encounter; T42.4X1A Poisoning by benzodiazepines, accidental (unintentional), initial encounter; T59.891A Toxic effect of other specified gases, fumes and vapors, accidental (unintentional), initial encounter; I63.9 Cerebral infarction, unspecified; I42.7 Cardiomyopathy due to drug and external agent; N17.9 Acute kidney failure, unspecified; J69.0 Pneumonitis due to inhalation of food and vomit; M62.82 Rhabdomyolysis; R94.5 Abnormal results of liver function studies; E87.2 Acidosis; F13.239 Sedative, hypnotic or anxiolytic dependence with withdrawal, unspecified; G92 Toxic encephalopathy; I21.4 Non-ST elevation (NSTEMI) myocardial infarction; R65.10 Systemic inflammatory response syndrome (SIRS) of non-infectious origin without acute organ dysfunction; G93.1 Anoxic brain damage, not elsewhere classified; F11.20 Opioid dependence, uncomplicated; J80 Acute respiratory distress syndrome; I50.9 Heart failure, unspecified; F41.9 Anxiety disorder, unspecified; F32.9 Major depressive disorder, single episode, unspecified; I95.9 Hypotension, unspecified; E87.5 Hyperkalemia; E66.9 Obesity, unspecified; Z68.33 Body mass index [BMI] 33.0-33.9, adult; F18.10 Inhalant abuse, uncomplicated; F12.10 Cannabis abuse, uncomplicated; R41.89 Other symptoms and signs involving cognitive functions and awareness; L70.9 Acne, unspecified; Z87.820 Personal history of traumatic brain injury
CPT/HCPCS: 80305; 80307; 82693-90; 82947-QW; 84600-90; 92507-GN; 92523-GN; 92526-GN; 92610-GN; 96374; 97116-GP; 97161-GP; 97166-GO; 97530-GO; 97535-GO; A9585; G0472; G0480; J0610; J1335; J1815; J2060; J2310